=== PATIENT | female | born 1990 | race Caucasian/White ===

== ENCOUNTER 2019-09-15 19:02 | Emergency (ER) | payer MEDICARE, MEDICAID ==
[~2019-09-15] VITALS: Ht 165.1 cm; Wt 78.0 kg
[2019-09-15] MEDS ORDERED: NS IV 1000 ML 1,000 ML IV SCH (19:30)
--- NOTE | 2019-09-15 19:37 | ED General ---
General Chief Complaint: General Problems/Pain Stated Complaint: ALL OVER BODY PAIN,DIZZY,NAUSEA Nursing Triage Note: Patient states that she has a history of lupus and fibromyalgia. Patient states that she has been dizzy, nauseated and has had generalized pain. Patient took an oxycodone about 1 hour ago. She states that when she feels like this, her platelets are usually low. Patient states this began about an hour ago. Nursing Sepsis Screen: No Definite Risk History of Present Illness Date Seen by Provider: Sep 15, 2019 Time Seen by Provider: 19:30 Initial Comments Patient presents by private vehicle with complaint of feeling numbness and shaky all over her body just prior to arriving's evening. Patient lives in [facility], but was at her sister's house nearby when this happened. She states she also is having some pain in her left thigh from what she thought was a pulled muscle so she took her oxycodone and then took 3 -75 mg Lyrica tabs which she takes for her fibromyalgia. Patient concerned that her platelets may be low as she has a history of ITP Allergies and Home Medications Allergies Coded Allergies: No Known Drug Allergies (Unverified , 09/15/19) Patient Home Medication List Home Medication List Reviewed: Yes Review of Systems Review of Systems Constitutional: see HPI; No chills, No diaphoresis; dizziness; No fever; malaise; No weakness EENTM: no symptoms reported Respiratory: No cough, No short of breath Cardiovascular: No chest pain, No palpitations Gastrointestinal: No abdominal pain, No loss of appetite; nausea; No vomiting Musculoskeletal: No back pain; muscle pain; No muscle cramps, No muscle weakness, No neck pain Skin: No change in color, No rash Psychiatric/Neurological: Anxiety, Numbness Past Zteufyu-Lbeozz-Mjhjps Hx Past Med/Social Hx: Reviewed Nursing Past Med/Soc Hx Patient Social History Alcohol Use: Denies Use Recreational Drug Use: No Smoking Status: Current Everyday Smoker Type Used: Cigarettes Recent Foreign Travel: No Contact w/Someone Who Travel: No Recent Infectious Disease Expo: No Physical Abuse: No Sexual Abuse: No Mistreated: No Fear: No Past Medical History Surgeries: Yes Tubal Ligation Respiratory: No Cardiac: No Neurological: No Genitourinary: No Gastrointestinal: No Musculoskeletal: No Endocrine: Yes Lupus HEENT: No Cancer: No Psychosocial: Yes Anxiety Integumentary: No Blood Disorders: Yes (Immune Thrombocytopenia) Physical Exam Vital Signs Vital Signs - First Documented 09/15/19 19:08 Temp 36.4 Pulse 111 Resp 18 B/P (MAP) 140/95 (110) Pulse Ox 98 O2 Delivery Room Air Capillary Refill : Less Than 3 Seconds Height, Weight, BMI Height: '" Weight: lbs. oz. kg; 28.00 BMI Method: General Appearance: No Apparent Distress, WD/WN Respiratory: Chest Non Tender, Lungs Clear Cardiovascular: Regular Rate, Rhythm, No Edema Gastrointestinal: Non Tender, Soft; No Guarding Back: Normal Inspection, No CVA Tenderness; No Muscle Spasm Extremity: Normal Capillary Refill, Non Tender, No Calf Tenderness Neurologic/Psychiatric: Alert, Oriented x3, No Motor/Sensory Deficits, Normal Mood/Affect Progress/Results/Core Measures Suspected Sepsis Recent Fever Within 48 Hours: No Infection Criteria Present: None New/Unexplained Altered Menta: No Sepsis Screen: No Definite Risk SIRS Temperature: Pulse: 111 Respiratory Rate: 18 Laboratory Tests 09/15/19 19:11: White Blood Count 9.6 Blood Pressure 140 /95 Mean: 110 Laboratory Tests 09/15/19 19:11: Creatinine 0.72, Platelet Count 105L, Total Bilirubin 0.5 Results/Orders Lab Results Laboratory Tests Test 09/15/19 19:11 Range/Units White Blood Count 9.6 4.3-11.0 10^3/uL Red Blood Count 5.18 4.35-5.85 10^6/uL Hemoglobin 15.3 11.5-16.0 G/DL Hematocrit 46 35-52 % Mean Corpuscular Volume 88 80-99 FL Mean Corpuscular Hemoglobin 30 25-34 PG Mean Corpuscular Hemoglobin Concent 34 32-36 G/DL Red Cell Distribution Width 13.8 10.0-14.5 % Platelet Count 105 L 130-400 10^3/uL Mean Platelet Volume 10.6 H 7.4-10.4 FL Neutrophils (%) (Auto) 62 42-75 % Lymphocytes (%) (Auto) 30 12-44 % Monocytes (%) (Auto) 7 0-12 % Eosinophils (%) (Auto) 1 0-10 % Basophils (%) (Auto) 1 0-10 % Neutrophils # (Auto) 5.9 1.8-7.8 X 10^3 Lymphocytes # (Auto) 2.9 1.0-4.0 X 10^3 Monocytes # (Auto) 0.6 0.0-1.0 X 10^3 Eosinophils # (Auto) 0.1 0.0-0.3 10^3/uL Basophils # (Auto) 0.1 0.0-0.1 10^3/uL Sodium Level 137 135-145 MMOL/L Potassium Level 3.9 3.6-5.0 MMOL/L Chloride Level 99 98-107 MMOL/L Carbon Dioxide Level 22 21-32 MMOL/L Anion Gap 16 H 5-14 MMOL/L Blood Urea Nitrogen 6 L 7-18 MG/DL Creatinine 0.72 0.60-1.30 MG/DL Estimat Glomerular Filtration Rate > 60 BUN/Creatinine Ratio 8 Glucose Level 95 70-105 MG/DL Calcium Level 9.3 8.5-10.1 MG/DL Corrected Calcium 9.0 8.5-10.1 MG/DL Total Bilirubin 0.5 0.1-1.0 MG/DL Aspartate Amino Transf (AST/SGOT) 17 5-34 U/L Alanine Aminotransferase (ALT/SGPT) 16 0-55 U/L Alkaline Phosphatase 63 40-136 U/L Total Protein 8.3 H 6.4-8.2 GM/DL Albumin 4.4 3.2-4.5 GM/DL My Orders Orders - BRITT DARBY DO Cbc With Automated Diff (09/15/19 19:26) Comprehensive Metabolic Panel (09/15/19 19:26) Ed Iv/Invasive Line Start (09/15/19 19:26) Ns Iv 1000 Ml (Sodium Chloride 0.9%) (09/15/19 19:30) Vital Signs/I&O 09/15/19 19:08 Temp 36.4 Pulse 111 Resp 18 B/P (MAP) 140/95 (110) Pulse Ox 98 O2 Delivery Room Air Capillary Refill : Less Than 3 Seconds Blood Pressure Mean: 110 Progress Note : Progress Note Patient with chronic fibromyalgia and on chronic pain management. Had an episode of anxiety with all over body numbness that she supposed was due to her having low platelets as she has a history of ITP. States she also has a service dog that was not with her today that detects when her platelets are low. Reassurance given the patient that her labs are normal there is no need for further evaluation or treatment at this time in the emergency room physician may follow up with her primary care provider regarding her chronic condition Departure Impression Primary Impression: Fibromyalgia Disposition: 01 HOME, SELF-CARE Condition: Stable Departure-Patient Inst. Decision time for Depature: 19:37 Referrals: NO,LOCAL PHYSICIAN (PCP/Family) Primary Care Physician Patient Instructions: Fibromyalgia (DC) Add. Discharge Instructions: Call your doctor tomorrow to arrange for follow up care in the next 1-2 weeks. All discharge instructions reviewed with patient and/or family. Voiced understanding. BRITT DARBY DO Sep 15, 2019 19:37
[2019-09-15 19:38] LABS: HEMATOCRIT 46 % (35-52); HEMOGLOBIN 15.3 G/DL (11.5-16.0); MEAN CORPUSCULAR HEMOGLOBIN 30 PG (25-34); MEAN CORPUSCULAR HGB CONC 34 G/DL (32-36); MEAN CORPUSCULAR VOLUME 88 FL (80-99); MEAN PLATELET VOLUME 10.6 FL (7.4-10.4); PLATELET COUNT 105 10^3/uL (130-400); RED CELL DISTRIBUTION WIDTH 13.8 % (10.0-14.5); WHITE BLOOD COUNT 9.6 10^3/uL (4.3-11.0)
[2019-09-15 19:39] LABS: BASOPHILS # (AUTO) 0.1 10^3/uL (0.0-0.1); BASOPHILS % (AUTO) 1 % (0-10); EOSINOPHILS # (AUTO) 0.1 10^3/uL (0.0-0.3); EOSINOPHILS % (AUTO) 1 % (0-10); LYMPHOCYTES # (AUTO) 2.9 X 10^3 (1.0-4.0); LYMPHOCYTES % (AUTO) 30 % (12-44); MONOCYTES # (AUTO) 0.6 X 10^3 (0.0-1.0); MONOCYTES % (AUTO) 7 % (0-12); NEUTROPHILS # (AUTO) 5.9 X 10^3 (1.8-7.8); NEUTROPHILS % (AUTO) 62 % (42-75)
[2019-09-15 19:46] LABS: ALANINE AMINOTRANSFERASE 16 U/L (0-55); ALKALINE PHOSPHATASE 63 U/L (40-136); BILIRUBIN,TOTAL 0.5 MG/DL (0.1-1.0); BUN/CREATININE RATIO 8; CALCIUM 9.3 MG/DL (8.5-10.1); CARBON DIOXIDE 22 MMOL/L (21-32); CHLORIDE 99 MMOL/L (98-107); CREATININE SERUM 0.72 MG/DL (0.60-1.30); GFR ESTIMATED > 60; GLUCOSE 95 MG/DL (70-105); POTASSIUM 3.9 MMOL/L (3.6-5.0); SODIUM 137 MMOL/L (135-145); TOTAL PROTEIN 8.3 GM/DL (6.4-8.2)
[2019-09-15 19:47] LABS: ALBUMIN 4.4 GM/DL (3.2-4.5)
[2019-09-15 20:22] VITALS: BP 117/75
--- OUTSIDE RECORDS SUMMARY | 2019-09-15 22:06 | XMS REPORT | Clinical Summary ---
Author Author Carmen Partida Organization [facility] Address Unknown Phone Unavailable Allergies, Adverse Reactions, Alerts Allergy Name Reaction Description Start Date Severity Status Pr ovider No Known Allergies Renata Garcia Conditions or Problems Problem Name Problem Code Onset Date Status Entry Date Provider Comment Standard Description Annotate Endometriosis 617.9 Active Blaze Holley OFFICE COPY SELECTOR Endometriosis, site unspecified BMI 31-31.9 Active Blaze Holley OFFICE COPY SELECTOR Body Mass Index 31.0-31.9, adult Obesity Class I (BMI 30-34.9) Active 9 Blaze Holley OFFICE COPY SELECTOR Obesity, unspecified Skin infection 686.9 Active Blaze Holley OFFICE COPY SELECTOR Unspecified local infection of skin and subcutaneous tissue Medication List Medication Instructions Start Date Stop Date Generic Name NDC Status Provider Patient Instruction MUPIROCIN 2 % EXTERNAL OINTMENT apply to lesion/rash TID PRN 05/05 MUPIROCIN 17899802673 Active Blaze Holley OFFICE COPY SELECTOR Active BACTRIM DS 800-160 MG ORAL TABLET 1 tab by mouth twice daily 05/05 TRIMETHOPRIM-SULFAMETHOXAZOLE 28919530509 Active Blaze Holley OFFICE COPY SELECTOR Active IBUPROFEN 800 MG ORAL TABLET 1 po PRN IBUPROFEN 93849 246079 Active Blaze Holley OFFICE COPY SELECTOR Active TRAMADOL HCL 50 MG ORAL TABLET 2 pills BID TRAM ADOL HCL 97082820033 Active Blaze Holley OFFICE COPY SELECTOR Active Vital Signs Date Name Value Unit Range Description blood pressure, diastolic, repeated by physician 79 BP ronquillo blood pressure, diastolic 79 mm[Hg] BP ronquillo blood pressure, systolic, repeated by physician 114 BP sys blood pressure, systolic 114 mm[Hg] BP sys height E&M 65 [in_us] Bdy height pulse rate E&M 80 /min Heart rate temperature E&M 98.6 [degF] Body temp erature weight E&M 191 [lb_av] Weight Measure d Encounters Code Encounter Date Provider Facility CPT-31836 Level 3 Est. Patient 10:37:33 TECHNICAL RECRUITER Blaze donovan OFFICE COPY SELECTOR [facility]
--- OUTSIDE RECORDS SUMMARY | 2019-09-15 22:06 | XMS REPORT | Clinical Summary ---
Author Author Carmen Partida Organization [employer] [facility] Address Unknown Phone Unavailable Allergies, Adverse Reactions, Alerts Allergy Name Reaction Description Start Date Severity Status Pr ovider No Known Allergies Ana galindo LRT Conditions or Problems Problem Name Problem Code Onset Date Status Entry Date Provider Comment Standard Description Annotate Endometriosis 617.9 Active Blaze Holley PROJECT PRODUCT MANAGER Endometriosis, site unspecified BMI 31-31.9 Refinement Blaze Holley PROJECT PRODUCT MANAGER Body Mass Index 31.0-31.9, adult BMI 30-30.9 Active Blaze Holley PROJECT PRODUCT MANAGER Body Mass Index 31.0-31.9, adult Obesity Class I (BMI 30-34.9) Active 9 Blaze Holley PROJECT PRODUCT MANAGER Obesity, unspecified Skin infection 686.9 Active Blaze Holley PROJECT PRODUCT MANAGER Unspecified local infection of skin and subcutaneous tissue Pharyngitis, acute / sore throat 462 Active 202 Blaze Holley PROJECT PRODUCT MANAGER Acute pharyngitis Medication List Medication Instructions Start Date Stop Date Generic Name NDC Status Provider Patient Instruction AMOXICILLIN 500 MG ORAL CAPSULE 1 cap by mouth twice daily 05/19 AMOXICILLIN 14642523091 Active Blaze Holley PROJECT PRODUCT MANAGER Activ e MUPIROCIN 2 % EXTERNAL OINTMENT apply to lesion/rash TID PRN 05/05 MUPIROCIN 90522485266 Active Blaze Holley PROJECT PRODUCT MANAGER Active BACTRIM DS 800-160 MG ORAL TABLET 1 tab by mouth twice daily 05/05 TRIMETHOPRIM-SULFAMETHOXAZOLE 46582348003 Active Blaze Holley PROJECT PRODUCT MANAGER Active IBUPROFEN 800 MG ORAL TABLET 1 po PRN IBUPROFEN 58655 216300 Active Blaze Holley PROJECT PRODUCT MANAGER Active TRAMADOL HCL 50 MG ORAL TABLET 2 pills BID TRAM ADOL HCL 99004943817 Active Blaze Fatimazion TAN Active Vital Signs Date Name Value Unit Range Description blood pressure, diastolic, repeated by physician 86 BP ronquillo blood pressure, diastolic 86 mm[Hg] BP ronquillo blood pressure, systolic, repeated by physician 122 BP sys blood pressure, systolic 122 mm[Hg] BP sys pulse rate E&M 84 /min Heart rate temperature E&M 98.5 [degF] Body temp erature weight E&M 181.90 [lb_av] Weight Measure d blood pressure, diastolic, repeated by physician 79 BP ronquillo blood pressure, diastolic 79 mm[Hg] BP ronquillo blood pressure, systolic, repeated by physician 114 BP sys blood pressure, systolic 114 mm[Hg] BP sys height E&M 65 [in_us] Bdy height pulse rate E&M 80 /min Heart rate temperature E&M 98.6 [degF] Body temp erature weight E&M 191 [lb_av] Weight Measure d Diagnostic Results Date Name Value Unit Range Description Append: Rapid result - Lab Microbial identification kit, rapid strep method Positive Encounters Code Encounter Date Provider Facility CPT-13379 Level 3 Est. Patient 10:16:59 BIOLOGICAL SCIENCES PROFESSOR Blaze donovan [facility] CPT-44978 Level 3 Est. Patient 10:37:33 BIOLOGICAL SCIENCES PROFESSOR Blaze donovan [facility] Procedures Code Procedure Name Date Entry Date Standard Desc ription CPT-11729 Rapid Strep - FLOOR USE ONLY 10:16:59 BIOLOGICAL SCIENCES PROFESSOR 2
--- OUTSIDE RECORDS SUMMARY | 2019-09-15 22:06 | XMS REPORT | Clinical Summary ---
Author Author Helga, Carmen Banks Organization [facility] Address Unknown Phone Unavailable Allergies, Adverse Reactions, Alerts Allergy Name Reaction Description Start Date Severity Status Pr ovider No Known Allergies Renata Garcia Conditions or Problems Problem Name Problem Code Onset Date Status Entry Date Provider Comment Standard Description Annotate Endometriosis 617.9 Active Blaze Holley MANAGER WEB APPLICATION Endometriosis, site unspecified BMI 31-31.9 Active Blaze Holley MANAGER WEB APPLICATION Body Mass Index 31.0-31.9, adult Obesity Class I (BMI 30-34.9) Active 9 Blaze Holley MANAGER WEB APPLICATION Obesity, unspecified Skin infection 686.9 Active Blaze Holley MANAGER WEB APPLICATION Unspecified local infection of skin and subcutaneous tissue Medication List Medication Instructions Start Date Stop Date Generic Name NDC Status Provider Patient Instruction MUPIROCIN 2 % EXTERNAL OINTMENT apply to lesion/rash TID PRN 05/05 MUPIROCIN 04038483799 Active Blaze Holley MANAGER WEB APPLICATION Active BACTRIM DS 800-160 MG ORAL TABLET 1 tab by mouth twice daily 05/05 TRIMETHOPRIM-SULFAMETHOXAZOLE 38203000148 Active Blaze Holley MANAGER WEB APPLICATION Active IBUPROFEN 800 MG ORAL TABLET 1 po PRN IBUPROFEN 07625 614892 Active Blaze Holley MANAGER WEB APPLICATION Active TRAMADOL HCL 50 MG ORAL TABLET 2 pills BID TRAM ADOL HCL 53997323023 Active Blaze Holley MANAGER WEB APPLICATION Active Vital Signs Date Name Value Unit [...] d Encounters Code Encounter Date Provider Facility CPT-02064 Level 3 Est. Patient 10:37:33 SMOKE JUMPER Blaze donovan [facility]
--- OUTSIDE RECORDS SUMMARY | 2019-09-15 22:06 | XMS REPORT ---
Author Author Carmen Garcia Organization [facility] Address [address] [place] [address] Care Team Providers Care Life Insurance Agent Name Role Phone Juanita Garcia Unavailable PROBLEMS Type Condition ICD9-CM Code [id number] Code Onset Dates Condition S tatus SNOMED Code Problem Fibromyalgia M79.7 Active 1803577 05 Problem Type 2 diabetes mellitus wit hout complication, without long-term current use of insulin E11.9 Active 306633137 Problem Rheumatoid arthritis involvi ng multiple sites, unspecified rheumatoid factor presence M06.9 Active 410717721 Problem Mild episode of recurrent major depressive disorder F33.0 Active 949288037 Problem Thrombocytopenia D69.6 Active [id number] ALLERGIES No Information ENCOUNTERS Encounter Location Date Diagnosis [facility] [address] [facility] [address] [place], [place] [id number] Feb, [facility] [address] [facility] [address] [place] [id number] Oct, [facility] [address] [facility] [address] [place], [place] [phone] Sep, [facility] [address] [place] [address] [address] [place], [place] [id number] Sep, [address] [id number] Sep, Thrombocytopenia D69.6 ; Glucosuria R81 and Type 2 diabetes mellitus without complication, without long-term current use of insulin E11.[address] [place], [place] [id number] Aug, Sunburn of second degree L55.1 and Cellu litis of right lower extremity L03.115 [address] [place], [place] [phone] Jun, Well woman exam Z01.419 [facility] [address] [address] [place], [place] [id number] Jun, [address] [address] [place] [id number] May, [facility] [address], [place] [phone] May, Lupus erythematosus, unspecified form L9 3.0 ; Thrombocytopenia D69.6 ; Rheumatoid arthritis involving multiple sites, unspecified rheumatoid factor presence M06.9 ; Acute non-recurrent pansinusitis J01.40 and Mild episode of recurrent major depressive disorder F33.0 IMMUNIZATIONS No Known Immunizations SOCIAL HISTORY Never Assessed REASON FOR VISIT Medical records request PLAN OF CARE VITAL SIGNS MEDICATIONS Unknown Medications RESULTS No Results PROCEDURES No Known procedures INSTRUCTIONS MEDICATIONS ADMINISTERED No Known Medications MEDICAL (GENERAL) HISTORY Type Description Date Medical History fibromyalgia Medical History RA Medical History lupus Medical History depression Medical History immunothrombocytopenia Medical History Thrombocytopenia Medical History Rheumatoid arthritis involvi ng multiple sites, unspecified rheumatoid factor presence Medical History Mild episode of recurrent major depressi ve disorder Medical History Fibromyalgia Surgical History tubal ligation Hospitalization History child x 3
--- OUTSIDE RECORDS SUMMARY | 2019-09-15 22:06 | XMS REPORT | Clinical Summary ---
Author Author Carmen Partida Organization [facility] Address Unknown Phone Unavailable Allergies, Adverse Reactions, Alerts Allergy Name Reaction Description Start Date Severity Status Pr ovider No Known Allergies Ana galindo LRT Conditions or Problems Problem Name Problem Code Onset Date Status Entry Date Provider Comment Standard Description Annotate Endometriosis 617.9 Active Blaze Holley SERVICE DESK SPECIALIST Endometriosis, site unspecified BMI 31-31.9 Refinement Blaze Holley SERVICE DESK SPECIALIST Body Mass Index 31.0-31.9, adult BMI 30-30.9 Active Blaze Holley SERVICE DESK SPECIALIST Body Mass Index 31.0-31.9, adult Obesity Class I (BMI 30-34.9) Active 9 Blaze Holley SERVICE DESK SPECIALIST Obesity, unspecified Skin infection 686.9 Active Blaze Holley SERVICE DESK SPECIALIST Unspecified local infection of skin and subcutaneous tissue Pharyngitis, acute / sore throat 462 Active 202 Blaze Holley SERVICE DESK SPECIALIST Acute pharyngitis Medication List Medication Instructions Start Date Stop Date Generic Name NDC Status Provider Patient Instruction AMOXICILLIN 500 MG ORAL CAPSULE 1 cap by mouth twice daily 05/19 AMOXICILLIN 25810277812 Active Blaze Holley SERVICE DESK SPECIALIST Activ e MUPIROCIN 2 % EXTERNAL OINTMENT apply to lesion/rash TID PRN 05/05 MUPIROCIN 34936054980 Active Blaze Holley SERVICE DESK SPECIALIST Active BACTRIM DS 800-160 MG ORAL TABLET 1 tab by mouth twice daily 05/05 TRIMETHOPRIM-SULFAMETHOXAZOLE 56343398267 Active Blaze Holley SERVICE DESK SPECIALIST Active IBUPROFEN 800 MG ORAL TABLET 1 po PRN IBUPROFEN 71257 020997 Active Blaze Holley SERVICE DESK SPECIALIST Active TRAMADOL HCL 50 MG ORAL TABLET 2 pills BID TRAM ADOL HCL 06293389501 Active Blaze Babb BRITNEY Active Vital Signs Date Name Value Unit [...] Positive Encounters Code Encounter Date Provider Facility CPT-54456 Level 3 Est. Patient 10:16:59 RECHARGER Blaze donovan [facility] CPT-78156 Level 3 Est. Patient 10:37:33 RECHARGER Blaze donovan [facility] Procedures Code Procedure Name Date Entry Date Standard Desc ription CPT-56723 Rapid Strep - FLOOR USE ONLY 10:16:59 RECHARGER 2
--- OUTSIDE RECORDS SUMMARY | 2019-09-15 22:06 | XMS REPORT | Clinical Summary ---
Author Author Carmen Partida Organization [facility] Address Unknown Phone Unavailable Allergies, Adverse Reactions, Alerts Allergy Name Reaction Description Start Date Severity Status Pr ovider No Known Allergies Ana galindo LRT Conditions or Problems Problem Name Problem Code Onset Date Status Entry Date Provider Comment Standard Description Annotate Endometriosis 617.9 Active Blaze Holley PIANO MOVER Endometriosis, site unspecified BMI 31-31.9 Refinement Blaze Holley PIANO MOVER Body Mass Index 31.0-31.9, adult BMI 30-30.9 Active Blaze Holley PIANO MOVER Body Mass Index 31.0-31.9, adult Obesity Class I (BMI 30-34.9) Active 9 Blaze Holley PIANO MOVER Obesity, unspecified Skin infection 686.9 Active Blaze Holley PIANO MOVER Unspecified local infection of skin and subcutaneous tissue Pharyngitis, acute / sore throat 462 Active 202 Blaze Holley PIANO MOVER Acute pharyngitis Medication List Medication Instructions Start Date Stop Date Generic Name NDC Status Provider Patient Instruction AMOXICILLIN 500 MG ORAL CAPSULE 1 cap by mouth twice daily 05/19 AMOXICILLIN 32381663881 Active Blaze Holley PIANO MOVER Activ e MUPIROCIN 2 % EXTERNAL OINTMENT apply to lesion/rash TID PRN 05/05 MUPIROCIN 23117542309 Active Blaze Holley PIANO MOVER Active BACTRIM DS 800-160 MG ORAL TABLET 1 tab by mouth twice daily 05/05 TRIMETHOPRIM-SULFAMETHOXAZOLE 32683827635 Active Blaze Holley PIANO MOVER Active IBUPROFEN 800 MG ORAL TABLET 1 po PRN IBUPROFEN 08657 007576 Active Blaze Holley PIANO MOVER Active TRAMADOL HCL 50 MG ORAL TABLET 2 pills BID TRAM ADOL HCL 48796703066 Active Blaze Babb BRITNEY Active Vital Signs [...] Positive Encounters Code Encounter Date Provider Facility CPT-72880 Level 3 Est. Patient 10:16:59 EQUIPMENT MECHANIC Blaze donovan [facility] CPT-39427 Level 3 Est. Patient 10:37:33 EQUIPMENT MECHANIC Blaze donovan [facility] Procedures Code Procedure Name Date Entry Date Standard Desc ription CPT-27633 Rapid Strep - FLOOR USE ONLY 10:16:59 EQUIPMENT MECHANIC 2
--- OUTSIDE RECORDS SUMMARY | 2019-09-15 22:06 | XMS REPORT | Clinical Summary ---
Author Author Carmen Partida Organization [employer] [facility] Address Unknown Phone Unavailable Allergies, Adverse Reactions, Alerts Allergy Name Reaction Description Start Date Severity Status Pr ovider No Known Allergies Ana galindo LRT Conditions or Problems Problem Name Problem Code Onset Date Status Entry Date Provider Comment Standard Description Annotate Endometriosis 617.9 Active Blaze Holley INDUSTRIAL RELATIONS WORKER Endometriosis, site unspecified BMI 31-31.9 Refinement Blaze Holley INDUSTRIAL RELATIONS WORKER Body Mass Index 31.0-31.9, adult BMI 30-30.9 Active Blaze Holley INDUSTRIAL RELATIONS WORKER Body Mass Index 31.0-31.9, adult Obesity Class I (BMI 30-34.9) Active 9 Blaez Holley INDUSTRIAL RELATIONS WORKER Obesity, unspecified Skin infection 686.9 Active Blaze Holley INDUSTRIAL RELATIONS WORKER Unspecified local infection of skin and subcutaneous tissue Pharyngitis, acute / sore throat 462 Active 202 Blaze Holley INDUSTRIAL RELATIONS WORKER Acute pharyngitis Medication List Medication Instructions Start Date Stop Date Generic Name NDC Status Provider Patient Instruction AMOXICILLIN 500 MG ORAL CAPSULE 1 cap by mouth twice daily 05/19 AMOXICILLIN 06356958688 Active Blaze Holley INDUSTRIAL RELATIONS WORKER Activ e MUPIROCIN 2 % EXTERNAL OINTMENT apply to lesion/rash TID PRN 05/05 MUPIROCIN 43606595886 Active Blaze Holley INDUSTRIAL RELATIONS WORKER Active BACTRIM DS 800-160 MG ORAL TABLET 1 tab by mouth twice daily 05/05 TRIMETHOPRIM-SULFAMETHOXAZOLE 37250504355 Active Blaze Holley INDUSTRIAL RELATIONS WORKER Active IBUPROFEN 800 MG ORAL TABLET 1 po PRN IBUPROFEN 76487 451700 Active Blaze Holley INDUSTRIAL RELATIONS WORKER Active TRAMADOL HCL 50 MG ORAL TABLET 2 pills BID TRAM ADOL HCL 33681181984 Active Blaze Fatimazion TAN Active Vital Signs [...] Positive Encounters Code Encounter Date Provider Facility CPT-22204 Level 3 Est. Patient 10:16:59 JAVASCRIPT APPLICATION DEVELOPER Blaze odnovan [facility] CPT-99241 Level 3 Est. Patient 10:37:33 JAVASCRIPT APPLICATION DEVELOPER Blaze donovan [facility] Procedures Code Procedure Name Date Entry Date Standard Desc ription CPT-50110 Rapid Strep - FLOOR USE ONLY 10:16:59 JAVASCRIPT APPLICATION DEVELOPER 2
--- OUTSIDE RECORDS SUMMARY | 2019-09-15 22:06 | XMS REPORT | Clinical Summary ---
Author Author Carmen Partida Organization [facility] Address Unknown Phone Unavailable Allergies, Adverse Reactions, Alerts Allergy Name Reaction Description Start Date Severity Status Pr ovider No Known Allergies Ana galindo LRT Conditions or Problems Problem Name Problem Code Onset Date Status Entry Date Provider Comment Standard Description Annotate Endometriosis 617.9 Active Blaze Holley VOICE INTERCEPT TECHNICIAN Endometriosis, site unspecified BMI 31-31.9 Refinement Blaze Holley VOICE INTERCEPT TECHNICIAN Body Mass Index 31.0-31.9, adult BMI 30-30.9 Active Blaze Holley VOICE INTERCEPT TECHNICIAN Body Mass Index 31.0-31.9, adult Obesity Class I (BMI 30-34.9) Active 9 Blaze Holley VOICE INTERCEPT TECHNICIAN Obesity, unspecified Skin infection 686.9 Active Blaze Holley VOICE INTERCEPT TECHNICIAN Unspecified local infection of skin and subcutaneous tissue Pharyngitis, acute / sore throat 462 Active 202 Blaze Holley VOICE INTERCEPT TECHNICIAN Acute pharyngitis Medication List Medication Instructions Start Date Stop Date Generic Name NDC Status Provider Patient Instruction AMOXICILLIN 500 MG ORAL CAPSULE 1 cap by mouth twice daily 05/19 AMOXICILLIN 44700600220 Active Blaze Holley VOICE INTERCEPT TECHNICIAN Activ e MUPIROCIN 2 % EXTERNAL OINTMENT apply to lesion/rash TID PRN 05/05 MUPIROCIN 64300059441 Active Blaze Holley VOICE INTERCEPT TECHNICIAN Active BACTRIM DS 800-160 MG ORAL TABLET 1 tab by mouth twice daily 05/05 TRIMETHOPRIM-SULFAMETHOXAZOLE 37535914090 Active Blaze Holley VOICE INTERCEPT TECHNICIAN Active IBUPROFEN 800 MG ORAL TABLET 1 po PRN IBUPROFEN 13693 582179 Active Blaze Holley VOICE INTERCEPT TECHNICIAN Active TRAMADOL HCL 50 MG ORAL TABLET 2 pills BID TRAM ADOL HCL 94813940536 Active Blaze Babb BRITNEY Active Vital Signs [...] Positive Encounters Code Encounter Date Provider Facility CPT-05035 Level 3 Est. 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
--- OUTSIDE RECORDS SUMMARY | 2019-09-15 22:06 | XMS REPORT | Clinical Summary ---
Author Author Helga, Carmen Banks Organization [facility] Address Unknown Phone Unavailable Allergies, Adverse Reactions, Alerts Allergy Name Reaction Description Start Date Severity Status Pr ovider No Known Allergies Renata Garcia Conditions or Problems Problem Name Problem Code Onset Date Status Entry Date Provider Comment Standard Description Annotate Endometriosis 617.9 Active Blaze Holley IT SYSTEMS ENGINEER Endometriosis, site unspecified BMI 31-31.9 Active Blaze Holley IT SYSTEMS ENGINEER Body Mass Index 31.0-31.9, adult Obesity Class I (BMI 30-34.9) Active 9 Blaze Holley IT SYSTEMS ENGINEER Obesity, unspecified Skin infection 686.9 Active Blaze Holley IT SYSTEMS ENGINEER Unspecified local infection of skin and subcutaneous tissue Medication List Medication Instructions Start Date Stop Date Generic Name NDC Status Provider Patient Instruction MUPIROCIN 2 % EXTERNAL OINTMENT apply to lesion/rash TID PRN 05/05 MUPIROCIN 28714341060 Active Blaze Holley IT SYSTEMS ENGINEER Active BACTRIM DS 800-160 MG ORAL TABLET 1 tab by mouth twice daily 05/05 TRIMETHOPRIM-SULFAMETHOXAZOLE 76298560063 Active Blaze Holley IT SYSTEMS ENGINEER Active IBUPROFEN 800 MG ORAL TABLET 1 po PRN IBUPROFEN 96303 154935 Active Blaze Holley IT SYSTEMS ENGINEER Active TRAMADOL HCL 50 MG ORAL TABLET 2 pills BID TRAM ADOL HCL 56512627701 Active Blaze Holley IT SYSTEMS ENGINEER Active Vital Signs Date Name Value Unit [...] d Encounters Code Encounter Date Provider Facility CPT-14582 Level 3 Est. 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
--- OUTSIDE RECORDS SUMMARY | 2019-09-15 22:06 | XMS REPORT ---
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 Active 754349423 Problem Thrombocytopenia D69.6 Active 415 [id number] ALLERGIES No Information ENCOUNTERS Encounter Location Date Diagnosis [facility] [address] [place], [place] [phone] Mar, [facility] [address] [place] [id number] Feb, [facility] [address] [place], [place] [phone] Oct[place] [facility] [address] [place], [place] [phone] Sep, [facility] [address] [facility] [address] [place], [place] [phone] Sep, [facility] [address] [place], [place] [phone] Sep, Thrombocytopenia D69.6 ; Glucosuria R81 and Type 2 diabetes mellitus without complication, without long-term current use of insulin E11.9 [facility] [address] [place] [phone] Aug, Sunburn of second degree L55.1 and Cellu litis of right lower extremity L03.115 [facility] [address] [place], [place] [phone] Jun, Well woman exam Z01.419 [facility] [address] [facility] [address] [place], [place] [phone] Jun, [facility] [address] [address] [place] [phone] May, [facility] [address] [place], [place] [phone] May, Lupus erythematosus, unspecified form L9 3.0 [...]
--- OUTSIDE RECORDS SUMMARY | 2019-09-15 22:06 | XMS REPORT | Clinical Summary ---
Author Author Carmen Partida Organization [facility] Address Unknown Phone Unavailable Allergies, Adverse Reactions, Alerts Allergy Name Reaction Description Start Date Severity Status Pr ovider No Known Allergies Ana galindo LRT Conditions or Problems Problem Name Problem Code Onset Date Status Entry Date Provider Comment Standard Description Annotate Endometriosis 617.9 Active Blaze Holley AUDIT SPECIALIST Endometriosis, site unspecified BMI 31-31.9 Refinement Blaze Holley AUDIT SPECIALIST Body Mass Index 31.0-31.9, adult BMI 30-30.9 Active Blaze Holley AUDIT SPECIALIST Body Mass Index 31.0-31.9, adult Obesity Class I (BMI 30-34.9) Active 9 Blaze Holley AUDIT SPECIALIST Obesity, unspecified Skin infection 686.9 Active Blaze Holley AUDIT SPECIALIST Unspecified local infection of skin and subcutaneous tissue Pharyngitis, acute / sore throat 462 Active 202 Blaze Holley AUDIT SPECIALIST Acute pharyngitis Medication List Medication Instructions Start Date Stop Date Generic Name NDC Status Provider Patient Instruction AMOXICILLIN 500 MG ORAL CAPSULE 1 cap by mouth twice daily 05/19 AMOXICILLIN 09312837637 Active Blaze Holley AUDIT SPECIALIST Activ e MUPIROCIN 2 % EXTERNAL OINTMENT apply to lesion/rash TID PRN 05/05 MUPIROCIN 15097786347 Active Blaze Holley AUDIT SPECIALIST Active BACTRIM DS 800-160 MG ORAL TABLET 1 tab by mouth twice daily 05/05 TRIMETHOPRIM-SULFAMETHOXAZOLE 72363121052 Active Blaze Holley AUDIT SPECIALIST Active IBUPROFEN 800 MG ORAL TABLET 1 po PRN IBUPROFEN 40595 979521 Active Blaze Holley AUDIT SPECIALIST Active TRAMADOL HCL 50 MG ORAL TABLET 2 pills BID TRAM ADOL HCL 44030370238 Active Blaze Babb BRITNEY Active Vital Signs [...] Positive Encounters Code Encounter Date Provider Facility CPT-45395 Level 3 Est. 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 Patient 10:37:33 FIRE PROTECTION INSPECTOR Blaze donovan [facility] Procedures Code Procedure Name Date Entry Date Standard Desc ription CPT-96437 Rapid Strep - FLOOR USE ONLY 10:16:59 FIRE PROTECTION INSPECTOR 2
--- OUTSIDE RECORDS SUMMARY | 2019-09-15 22:07 | XMS REPORT | Clinical Summary ---
Author Author Carmen Partida Organization [facility] Address Unknown Phone Unavailable Allergies, Adverse Reactions, Alerts Allergy Name Reaction Description Start Date Severity Status Pr ovider No Known Allergies Renata Garcia Conditions or Problems Problem Name Problem Code Onset Date Status Entry Date Provider Comment Standard Description Annotate Endometriosis 617.9 Active Blaze Ohlley SENIOR SUPPORT ENGINEER Endometriosis, site unspecified BMI 31-31.9 Active Blaze Holley SENIOR SUPPORT ENGINEER Body Mass Index 31.0-31.9, adult Obesity Class I (BMI 30-34.9) Active 9 Blaze Holley SENIOR SUPPORT ENGINEER Obesity, unspecified Skin infection 686.9 Active Blaze Holley SENIOR SUPPORT ENGINEER Unspecified local infection of skin and subcutaneous tissue Medication List Medication Instructions Start Date Stop Date Generic Name NDC Status Provider Patient Instruction MUPIROCIN 2 % EXTERNAL OINTMENT apply to lesion/rash TID PRN 05/05 MUPIROCIN 49109942485 Active Blaze Holley SENIOR SUPPORT ENGINEER Active BACTRIM DS 800-160 MG ORAL TABLET 1 tab by mouth twice daily 05/05 TRIMETHOPRIM-SULFAMETHOXAZOLE 28426840844 Active Blaze Holley SENIOR SUPPORT ENGINEER Active IBUPROFEN 800 MG ORAL TABLET 1 po PRN IBUPROFEN 52563 337691 Active Blaze Holley SENIOR SUPPORT ENGINEER Active TRAMADOL HCL 50 MG ORAL TABLET 2 pills BID TRAM ADOL HCL 27662165809 Active Blaze Holley SENIOR SUPPORT ENGINEER Active Vital Signs Date Name Value [...] d Encounters Code Encounter Date Provider Facility CPT-86580 Level 3 Est. 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
--- OUTSIDE RECORDS SUMMARY | 2019-09-15 22:07 | XMS REPORT | Continuity of Care Document ---
Author Organization Unknown Address Unknown Phone Unavailable Allergies Active Description Code Type Severity Reaction Onset Reported/Identified Relationship to Patient Clinical Status Yes NKA Drug N/A N/A Yes NKA Drug N/A N/A Yes No known allergies Drug N/A N/A Yes NO NAME AVAILABLE [id number] DRUG N/A N/A Yes No Known Allergies NKA MED N/A N/A 11/11/2017 Yes No Known Drug Allergies [id number] Drug Allergy Unknown N/A 09/15/2019 Medications Medication Packaging Start Date St op Date Route Dosage Sig naproxen 015 08/01/2015 PO 500 mg / 1 tab DULoxetine 01/2708/01/2015 PO 30 mg / 1 cap hydroxychloroquine 01/27/2015 08/05/2016 PO 400 mg / 2 tab methocarbamol 06/12/2018 PO methocarbamol tiZANidine 01/2708/01/2015 PO 2 mg / 1 cap meloxicam 201408/05/2016 PO 15 mg / 1 tab ferrous sulfate 08/01/2015 05/03/2019 PO 324 mg / 1 tab tiZANidine 07/3110/03/2017 PO 4 mg / 2 tab FLUoxetine 07/3110/28/2016 PO FLUoxetine montelukast 03/17 PO 10 mg / 1 tab pregabalin 03/2901/28/2017 PO 150 mg / 3 cap naproxen 017 PO 500 mg / 1 tab dexamethasone 09/02/2016 dexamethasone 4 mg oral tablet orphenadrine 01/28/2017 PO 100 mg / 1 tab DULoxetine 10/2805/03/2019 PO 60 mg / 1 cap pregabalin 01/2805/03/2019 PO 225 mg / 1 cap azaTHIOprine 10/03/2017 PO 50 mg / 1 tab SUMAtriptan 07/1507/26/2017 Imitrex 100 mg oral tablet dexamethasone 10/03/2017 dexamethasone 4 mg oral tablet azaTHIOprine 05/03/2019 PO azaTHIOprine tiZANidine 10/0305/03/2019 PO 8 mg / 2 tab SUMAtriptan 09/15 PO 100 mg / 1 tab triamcinolone topical 10/03/2017 TOP triamcinolone 0.1% topical cream predniSONE 10/0410/18/2017 PO 90 mg / 4.5 tab predniSONE 10/2012/17/2017 predniSONE 20 mg oral tablet ARIPiprazole 5 MG Oral Tablet 11/11/2017 12/12/2017 ORAL 5MG predniSONE 11/1312/17/2017 predniSONE 2.5 mg oral tablet ARIPiprazole 02/201805/03/2019 PO 5 mg / 1 tab ARIPiprazole 5 MG Oral Tablet 12/09/2017 12/17/2017 ORAL 5MG ARIPiprazole 5 MG Oral Tablet 12/16/2017 02/15/2018 ORAL 5MG traMADol 018 PO Ultram varenicline 03/1706/12/2018 PO Chantix doxycycline 06/1507/10/2018 PO 100 mg / 1 cap Abilify 10 MG Oral Tablet 07/21/2018 10/20/2018 ORAL 10MG ARIPiprazole 5 MG Oral Tablet 07/21/2018 10/20/2018 ORAL 5MG DULoxetine HCl 60 MG Oral Ca psule Delayed Release Particles 07/21/2018 10/20/2018 ORAL 60MG busPIRone HCl 10 MG Oral Tablet 07/21/2018 10/20/2018 ORAL 10MG ibuprofen 201807/28/2018 PO 800 mg / 1 tab busPIRone 201805/03/2019 PO 10 mg / 1 tab omeprazole 09/2105/06/2019 PO 20 mg / 1 cap Abilify 10 MG Oral Tablet 11/10/2018 02/09/2019 ORAL 10MG DULoxetine HCl 60 MG Oral Ca psule Delayed Release Particles 11/10/2018 02/09/2019 ORAL 60MG busPIRone HCl 10 MG Oral Tablet 11/10/2018 02/09/2019 ORAL 10MG ondansetron 11/15 SL 4 mg / 1 tab ondansetron 04/17 PO 4 mg / 1 tab omeprazole 05/06 PO 40 mg / 1 cap Problems Date Dx Coded Attending Type Code Diagnosis Diagnosed By 07/13/2014 Emilia Espinoza Final 710.0 Systemic Lupus Erythematosus 08/03/2014 David You Final 287.5 Thrombocytopenia, Unspecified 02/02/2015 David You Final D69.6 Thrombocytopenia, unspecified 02/02/2015 David You Final L93.0 Discoid lupus erythematosus 08/15/2015 David You Final D69.6 Thrombocytopenia, unspecified 04/28/2016 David You Final D69.6 Thrombocytopenia, unspecified 05/29/2016 Emilia Espinoza Final M32.9 Systemic lupus erythematosus, unspecified 05/29/2016 Emilia Espinoza Final R53.83 Other fatigue 09/04/2016 David You Final D69.6 Thrombocytopenia, unspecified 09/04/2016 David You Final M32.9 Systemic lupus erythematosus, unspecified 11/27/2016 David You Final D69.3 Immune thrombocytopenic purpura 11/27/2016 David You Final M32.9 Systemic lupus erythematosus, unspecified 02/05/2017 David You Final D69.3 Immune thrombocytopenic purpura 02/05/2017 David You Final M32.9 Systemic lupus erythematosus, unspecified 02/16/2017 HEMA DICK P R 300 Dysuria 05/01/2017 David You Final D69.3 Immune thrombocytopenic purpura 05/01/2017 David You Final M32.9 Systemic lupus erythematosus, unspecified 08/26/2017 David You Final D69.3 Immune thrombocytopenic purpura 08/26/2017 David You Final M32.9 Systemic lupus erythematosus, unspecified 08/26/2017 David You Final R23.3 Spontaneous ecchymoses 10/04/2017 Harpreet Tubbs I Final D69 .3 Immune thrombocytopenic purpura 10/04/2017 Harpreet Tubbs I Final E66 .9 Obesity, unspecified 10/04/2017 Harpreet Tubbs I Final F17.210 Nicotine dependence, cigarettes, uncomplicated 10/04/2017 Harpreet Tubbs I Final G43.909 Migraine, unspecified, not intractable, without status migra 10/04/2017 Harpreet Tubbs I Final G62 .9 Polyneuropathy, unspecified 10/04/2017 Harpreet Tubbs I Final L93 .2 Other local lupus erythematosus 10/04/2017 Harpreet Tubbs I Final M06 .9 Rheumatoid arthritis, unspecified 10/04/2017 Harpreet Tubbs I Final M79 .7 Fibromyalgia 10/04/2017 Harpreet Tubbs I Final N92 .0 Excessive and frequent menstruation with regular cycle 10/04/2017 Harpreet Tubbs I Final Z68.33 Body mass index (BMI) 33.0-33.9, adult 11/04/2017 F F33.1 Caroline r depressive disorder, recurrent, moderate Miriam, Di 11/04/2017 Annmarie Valdivia W F33.1 Major depressive disorder, recurrent, moderate 11/04/2017 Annmarie Valdivia W F41.1 Generalized anxiety disorder 11/09/2017 David You Final D69.3 Immune thrombocytopenic purpura 11/09/2017 David You Final M32.9 Systemic lupus erythematosus, unspecified 11/09/2017 David You Final 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 12/10/2017 David You Final D69.3 Immune thrombocytopenic purpura 12/10/2017 David You Final M32.9 Systemic lupus erythematosus, unspecified 12/10/2017 David You Final Z71.89 Other specified counseling 12/10/2017 David You Final 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 01/10/2018 David You Final D69.3 Immune thrombocytopenic purpura 01/10/2018 David You Final M32.9 Systemic lupus erythematosus, unspecified 01/29/2018 David You Final D69.3 Immune thrombocytopenic purpura 01/29/2018 David You Final M32.9 Systemic lupus erythematosus, unspecified 01/29/2018 David You Final Z71.89 Other specified counseling 03/25/2018 David You Final D69.3 Immune thrombocytopenic purpura 04/24/2018 David You Final D69.3 Immune thrombocytopenic purpura 05/30/2018 David You Final D69.3 Immune thrombocytopenic purpura 05/30/2018 David You Final M32.9 Systemic lupus erythematosus, unspecified 05/30/2018 David You Final R23.2 Flushing 06/10/2018 David You Final D69.3 Immune thrombocytopenic purpura 06/18/2018 Igor Harris Final N93 .9 Abnormal uterine and vaginal bleeding, unspecified 07/24/2018 Igor Harris Final D69 .3 Immune thrombocytopenic purpura 07/24/2018 Igor Harris Final F17.210 Nicotine dependence, cigarettes, uncomplicated 07/24/2018 Igor Harris Final L93 .2 Other local lupus erythematosus 07/24/2018 Igor Harris Final N92 .0 Excessive and frequent menstruation with regular cycle 07/24/2018 Igor Harris Final N92 .6 Irregular menstruation, unspecified 07/24/2018 Igor Harris Final N93 .9 Abnormal uterine and vaginal bleeding, unspecified 07/24/2018 Igor Harris Final Z98.51 Tubal ligation status 07/29/2018 David You Final D69.6 Thrombocytopenia, unspecified 09/24/2018 Luis Quiles Final G89.2 9 Other chronic pain 09/24/2018 Luis Quiles Final R10.3 2 Left lower quadrant pain 11/09/2018 Luis Quiles Final Z53.9 Procedure and treatment not carried out, unspecified reason 11/21/2018 David You Final D69.3 Immune thrombocytopenic purpura 12/02/2018 F F41.1 Gene ralized anxiety disorder Di Pineda 12/04/2018 Igor Harris Final R10.32 Left lower quadrant pain 12/22/2018 David You Final D69.3 Immune thrombocytopenic purpura 12/24/2018 Priya Castellanos Reason For Visit D69.59 Other secondary thrombocytopenia 12/24/2018 Priya Castellanos Final J06. 9 Acute upper respiratory infection, unspecified 12/24/2018 Priya Castellanos Final M32. 9 Systemic lupus erythematosus, unspecified 01/30/2019 GUILLERMO MEANS Final N 83.201 Unspecified ovarian cyst, right side 01/30/2019 GUILLERMO MEANS Reason For Visit R10.31 Right lower quadrant pain 03/04/2019 L08.9 Skin infection 03/04/2019 E66.9 Obes ity Class I (BMI 30-34.9) 03/04/2019 N80.9 Endo metriosis 03/04/2019 Z68.31 BMI 31-31.9 03/06/2019 Laura Rhoades Final N83.201 Unspecified ovarian cyst, right side 03/06/2019 Laura Rhoades Reason For Visi t R10.31 Right lower quadrant pain 05/03/2019 Luis Quiles Final F17.2 10 Nicotine dependence, cigarettes, uncomplicated 05/03/2019 Luis Quiles Final K29.8 0 Duodenitis without bleeding 05/03/2019 Luis Quiles Final K31.9 Disease of stomach and duodenum, unspecified 05/03/2019 Luis Quiles Final K52.9 Noninfective gastroenteritis and colitis, unspecified 05/03/2019 Luis Quiles Final K64.0 First degree hemorrhoids 05/03/2019 Luis Quiles Final R10.3 2 Left lower quadrant pain 05/03/2019 Luis Quiles Final R11.2 Nausea with vomiting, unspecified 05/20/2019 J02.9 Phar yngitis, acute / sore throat 05/20/2019 Z68.30 BMI 30-30.9 2019 LALITA URBINA Final D69.6 Thrombocytopenia, unspecified 2019 LALITA URBINA Final M79.10 Myalgia, unspecified site 2019 LALITA URBINA Reason For Visit R52 Pain, unspecified Procedures Code Description [place] [address] Hyst eroscopy, surgical; with endometrial JUDIE TOSCANO 07/24/2018 [id number] Esop hagogastroduodenoscopy, flexible, JUDIE Kennedy 05/03/2019 [id number] Rotan noscopy, flexible; with biopsy, JUDIE Archuleta 05/03/2019 Results Test Result Range CBCA - 01/27/15 13:03 WBC Count 7.5 X1000/cmm 4.0-10.5 RBC Count 5.01 [id number]/cmm 4.00-5.40 Hemoglobin 14.2 g/dL 12.0-16.0 Hematocrit 41.8 % 37.0-47.0 MCV 83.4 fL 78-100 MCH 28.3 pg 27.0-31.0 MCHC 34.0 g/dL 32.0-36.0 RDW 14.8 % 11.5-14.0 Platelet Count 77 X1000/cmm 150-450 MPV 10.4 fL 8.0-11.7 Differential Type AUTOMATED NRG Neutrophil % 68.7 % 43.0-65.0 Lymphocyte % 23.3 % 20.5-45.5 Monocyte % 6.8 % 5.5-11.7 Eosinophil % 0.5 % 0.9-2.9 Basophil % 0.4 % 0.2-1.0 Neutrophil Abs Auto 5.1 X1000 1.72-6.83 Lymphocyte Abs Auto 1.7 X1000 0.84-4.83 Monocyte Abs Auto 0.5 X1000 0.24-1.26 Eosinophil Abs Auto 0.0 X1000 0.04-0.32 Basophil Abs Auto 0.0 X1000 0.00-0.11 Immature Granulocyte 0.3 % NRG Immature Grans Absolute 0.0 X1000 0.00-0 .05 CBCA - 08/01/15 15:05 WBC Count 6.6 X1000/cmm 4.0-10.5 RBC Count 4.75 [id number]/cmm 4.00-5.40 Hemoglobin 13.4 g/dL 12.0-16.0 Hematocrit 39.4 % 37.0-47.0 MCV 82.9 fL 78-100 MCH 28.2 pg 27.0-31.0 MCHC 34.0 g/dL 32.0-36.0 RDW 13.9 % 11.5-14.0 Platelet Count 52 X1000/cmm 150-450 MPV 11.0 fL 8.0-11.7 Differential Type AUTOMATED NRG Neutrophil % 58.4 % 43.0-65.0 Lymphocyte % 33.7 % 20.5-45.5 Monocyte % 5.9 % 5.5-11.7 Eosinophil % 1.1 % 0.9-2.9 Basophil % 0.9 % 0.2-1.0 Neutrophil Abs Auto 3.9 X1000 1.72-6.83 Lymphocyte Abs Auto 2.2 X1000 0.84-4.83 Monocyte Abs Auto 0.4 X1000 0.24-1.26 Eosinophil Abs Auto 0.1 X1000 0.04-0.32 Basophil Abs Auto 0.1 X1000 0.00-0.11 Immature Granulocyte 0.0 % NRG Immature Grans Absolute 0.0 X1000 0.00-0 .05 CBCA - 03/29/16 13:05 WBC Count 6.2 X1000/cmm 4.0-10.5 RBC Count 4.63 [id number]/cmm 4.00-5.40 Hemoglobin 13.7 g/dL 12.0-16.0 Hematocrit 39.8 % 37.0-47.0 MCV 86.0 fL 78-100 MCH 29.6 pg 27.0-31.0 MCHC 34.4 g/dL 32.0-36.0 RDW 13.5 % 11.5-14.0 Platelet Count 84 X1000/cmm 150-450 MPV 10.8 fL 8.0-11.7 Differential Type AUTOMATED NRG Neutrophil % 52.9 % 43.0-65.0 Lymphocyte % 37.6 % 20.5-45.5 Monocyte % 6.6 % 5.5-11.7 Eosinophil % 2.1 % 0.9-2.9 Basophil % 0.6 % 0.2-1.0 Neutrophil Abs Auto 3.3 X1000 1.72-6.83 Lymphocyte Abs Auto 2.3 X1000 0.84-4.83 Monocyte Abs Auto 0.4 X1000 0.24-1.26 Eosinophil Abs Auto 0.1 X1000 0.04-0.32 Basophil Abs Auto 0.0 X1000 0.00-0.11 Immature Granulocyte 0.2 % NRG Immature Grans Absolute 0.0 X1000 0.00-0 .05 SED RATE - 05/29/16 13:24 Sed Rate 13 mm/hr 0-20 CBCA - 08/05/16 09:51 WBC Count 7.0 X1000/cmm 4.0-10.5 RBC Count 4.76 [id number]/cmm 4.00-5.40 Hemoglobin 13.8 g/dL 12.0-16.0 Hematocrit 40.7 % 37.0-47.0 MCV 85.5 fL 78-100 MCH 29.0 pg 27.0-31.0 MCHC 33.9 g/dL 32.0-36.0 RDW 14.1 % 11.5-14.0 Platelet Count 37 X1000/cmm 150-450 MPV 11.6 fL 8.0-11.7 Neutrophil % 57.2 % 43.0-65.0 Lymphocyte % 33.2 % 20.5-45.5 Monocyte % 5.9 % 5.5-11.7 Eosinophil % 3.0 % 0.9-2.9 Basophil % 0.4 % 0.2-1.0 Immature Granulocyte 0.3 % NRG Neutrophil Abs Auto 4.0 X1000 1.72-6.83 Lymphocyte Abs Auto 2.3 X1000 0.84-4.83 Monocyte Abs Auto 0.4 X1000 0.24-1.26 Eosinophil Abs Auto 0.2 X1000 0.04-0.32 Basophil Abs Auto 0.0 X1000 0.00-0.11 Immature Grans Absolute 0.0 X1000 0.00-0 .05 Differential Type AUTOMATED NRG CBCA - 09/02/16 13:28 WBC Count 7.3 X1000/cmm 4.0-10.5 RBC Count 4.85 [id number]/cmm 4.00-5.40 Hemoglobin 14.0 g/dL 12.0-16.0 Hematocrit 41.2 % 37.0-47.0 MCV 84.9 fL 78-100 MCH 28.9 pg 27.0-31.0 MCHC 34.0 g/dL 32.0-36.0 RDW 14.1 % 11.5-14.0 Platelet Count 73 X1000/cmm 150-450 MPV 11.2 fL 8.0-11.7 Differential Type AUTOMATED NRG Neutrophil % 49.6 % 43.0-65.0 Lymphocyte % 37.1 % 20.5-45.5 Monocyte % 8.8 % 5.5-11.7 Eosinophil % 3.6 % 0.9-2.9 Basophil % 0.6 % 0.2-1.0 Neutrophil Abs Auto 3.6 X1000 1.72-6.83 Lymphocyte Abs Auto 2.7 X1000 0.84-4.83 Monocyte Abs Auto 0.6 X1000 0.24-1.26 Eosinophil Abs Auto 0.3 X1000 0.04-0.32 Basophil Abs Auto 0.0 X1000 0.00-0.11 Immature Granulocyte 0.3 % NRG Immature Grans Absolute 0.0 X1000 0.00-0 .05 BLOOD BANK HOLD - 09/02/16 13:28 Blood Bank Hold DRAWN NRG Specimen Or Xm Expiration 09/05/2016 NR G CBCA - 10/28/16 14:42 WBC Count 16.4 X1000/cmm 4.0-10.5 RBC Count 4.89 [id number]/cmm 4.00-5.40 Hemoglobin 14.2 g/dL 12.0-16.0 Hematocrit 41.4 % 37.0-47.0 MCV 84.7 fL 78-100 MCH 29.0 pg 27.0-31.0 MCHC 34.3 g/dL 32.0-36.0 RDW 13.6 % 11.5-14.0 Platelet Count 159 X1000/cmm 150-450 MPV 10.8 fL 8.0-11.7 Differential Type AUTOMATED NRG Neutrophil % 75.1 % 43.0-65.0 Lymphocyte % 18.6 % 20.5-45.5 Monocyte % 4.8 % 5.5-11.7 Eosinophil % 0.7 % 0.9-2.9 Basophil % 0.4 % 0.2-1.0 Neutrophil Abs Auto 12.4 X1000 1.72-6.83 Lymphocyte Abs Auto 3.1 X1000 0.84-4.83 Monocyte Abs Auto 0.8 X1000 0.24-1.26 Eosinophil Abs Auto 0.1 X1000 0.04-0.32 Basophil Abs Auto 0.1 X1000 0.00-0.11 Immature Granulocyte 0.4 % NRG Immature Grans Absolute 0.1 X1000 0.00-0 .05 CBCA - 01/28/17 12:33 WBC Count 6.8 X1000/cmm 4.0-10.5 RBC Count 4.97 [id number]/cmm 4.00-5.40 Hemoglobin 14.5 g/dL 12.0-16.0 Hematocrit 42.6 % 37.0-47.0 MCV 85.7 fL 78-100 MCH 29.2 pg 27.0-31.0 MCHC 34.0 g/dL 32.0-36.0 RDW 14.0 % 11.5-14.0 Platelet Count 92 X1000/cmm 150-450 MPV 11.2 fL 8.0-11.7 Differential Type AUTOMATED NRG Neutrophil % 55.2 % 43.0-65.0 Lymphocyte % 35.7 % 20.5-45.5 Monocyte % 5.6 % 5.5-11.7 Eosinophil % 2.8 % 0.9-2.9 Basophil % 0.6 % 0.2-1.0 Neutrophil Abs Auto 3.8 X1000 1.72-6.83 Lymphocyte Abs Auto 2.4 X1000 0.84-4.83 Monocyte Abs Auto 0.4 X1000 0.24-1.26 Eosinophil Abs Auto 0.2 X1000 0.04-0.32 Basophil Abs Auto 0.0 X1000 0.00-0.11 Immature Granulocyte 0.1 % NRG Immature Grans Absolute 0.0 X1000 0.00-0 .05 MICROSCOPIC URINALYSIS ONLY - 02/16/17 0 0:01 MICROSCOPIC EXAM REQUESTED NRG WBC/HPF 5-10 HPF 0-4 /HPF RBC/HPF 0-3 HPF 0-4 /HPF BACTERIA NEGATIVE NR: NEGATIVE MUCUS NEGATIVE NR: NEGATIVE EPI CELLS/LPF 0-2 NR: NONE SEEN AMORPHOUS NEGATIVE NRG Cult Medium Islt - 02/16/17 00:01 CULTURE URINE LAB NRG CBCA - 04/28/17 10:27 WBC Count 6.4 X1000/cmm 4.0-10.5 RBC Count 4.89 [id number]/cmm 4.00-5.40 Hemoglobin 14.3 g/dL 12.0-16.0 Hematocrit 42.2 % 37.0-47.0 MCV 86.3 fL 78-100 MCH 29.2 pg 27.0-31.0 MCHC 33.9 g/dL 32.0-36.0 RDW 14.3 % 11.5-14.0 Platelet Count 164 X1000/cmm 150-450 MPV 10.3 fL 8.0-11.7 Differential Type AUTOMATED NRG Neutrophil % 60.3 % 43.0-65.0 Lymphocyte % 29.7 % 20.5-45.5 Monocyte % 7.7 % 5.5-11.7 Eosinophil % 1.6 % 0.9-2.9 Basophil % 0.5 % 0.2-1.0 Neutrophil Abs Auto 3.8 X1000 1.72-6.83 Lymphocyte Abs Auto 1.9 X1000 0.84-4.83 Monocyte Abs Auto 0.5 X1000 0.24-1.26 Eosinophil Abs Auto 0.1 X1000 0.04-0.32 Basophil Abs Auto 0.0 X1000 0.00-0.11 Immature Granulocyte 0.2 % NRG Immature Grans Absolute 0.0 X1000 0.00-0 .05 CBCA - 08/15/17 15:41 WBC Count 6.5 X1000/cmm 4.0-10.5 RBC Count 4.77 [id number]/cmm 4.00-5.40 Hemoglobin 14.5 g/dL 12.0-16.0 Hematocrit 42.1 % 37.0-47.0 MCV 88.3 fL 78-100 MCH 30.4 pg 27.0-31.0 MCHC 34.4 g/dL 32.0-36.0 RDW 14.4 % 11.5-14.0 Platelet Count 54 X1000/cmm 150-450 MPV 11.5 fL 8.0-11.7 Differential Type AUTOMATED NRG Neutrophil % 60.1 % 43.0-65.0 Lymphocyte % 30.5 % 20.5-45.5 Monocyte % 6.2 % 5.5-11.7 Eosinophil % 2.3 % 0.9-2.9 Basophil % 0.6 % 0.2-1.0 Neutrophil Abs Auto 3.9 X1000 1.72-6.83 Lymphocyte Abs Auto 2.0 X1000 0.84-4.83 Monocyte Abs Auto 0.4 X1000 0.24-1.26 Eosinophil Abs Auto 0.2 X1000 0.04-0.32 Basophil Abs Auto 0.0 X1000 0.00-0.11 Immature Granulocyte 0.3 % NRG Immature Grans Absolute 0.0 X1000 0.00-0 .05 CBCA - 10/02/17 19:25 WBC Count 8.1 X1000/cmm 4.0-10.5 RBC Count 4.50 [id number]/cmm 4.00-5.40 Hemoglobin 14.0 g/dL 12.0-16.0 Hematocrit 39.5 % 37.0-47.0 MCV 87.8 fL 78-100 MCH 31.1 pg 27.0-31.0 MCHC 35.4 g/dL 32.0-36.0 RDW 14.3 % 11.5-14.0 Platelet Count 8 X1000/cmm 150-450 MPV 14.4 fL 8.0-11.7 Neutrophil % 68.9 % 43.0-65.0 Lymphocyte % 20.0 % 20.5-45.5 Monocyte % 7.3 % 5.5-11.7 Eosinophil % 2.8 % 0.9-2.9 Basophil % 0.6 % 0.2-1.0 Immature Granulocyte 0.4 % NRG Neutrophil Abs Auto 5.6 X1000 1.72-6.83 Lymphocyte Abs Auto 1.6 X1000 0.84-4.83 Monocyte Abs Auto 0.6 X1000 0.24-1.26 Eosinophil Abs Auto 0.2 X1000 0.04-0.32 Basophil Abs Auto 0.1 X1000 0.00-0.11 Immature Grans Absolute 0.0 X1000 0.00-0 .05 Differential Type MANUAL NRG Platelet Estimate DECREASED NRG RBC Morphology NORMAL NRG Platelet Morphology NORMAL NRG URINALYSIS, CULTURE IF INDICATED - 10/02 20:30 Color, UA YELLOW YELL Clarity, Urine SLIGHTLY CLOUDY Clear Glucose, Urine NEGATIVE mg/dL NEG Bilirubin, UA NEGATIVE NEG Ketones, UA TRACE mg/dL NEG Specific [place], UA 1.029 1.003-1.0 30 Blood, UA MODERATE NEG pH, UA 6.0 5.0-9.0 Protein, UA 30 mg/dL NEG Urobilinogen, UA 3.0 mg/dL NORM Nitrites, UA NEGATIVE NEG Leukocyte Esterase, UA TRACE NEG WBC's, UA 10 to 25 /hpf OFIVE RBC, UA 5 to 10 /hpf OFIVE Bacteria, UA MODERATE /hpf NEG Squamous Epithelials, UA MANY /hpf NEGFE W Hyaline Casts 2 to 5 /lpf NEG Urine Culture Indicated SENT FOR CULTURE NOCULT Specimen Description VOID URINE [facility] URINE CULTURE - 10/02/17 20:30 Specimen Description URINE [facility] Special Requests NONE Reflexed from [id number] NRG [place] Count 10,000 CFU/ML NRG Culture MIXED ROEL IS NOT REPRESENT ATIVE OF INFECTION. PLEASE REPEAT IF CLINICALLY INDICATED. NRG Report Status FINAL 10/04/2017 NRG Organism MIXFL NRG Culture Status NRG CBCA - 10/03/17 06:37 WBC Count 9.0 X1000/cmm 4.0-10.5 RBC Count 4.61 [id number]/cmm 4.00-5.40 Hemoglobin 13.7 g/dL 12.0-16.0 Hematocrit 40.3 % 37.0-47.0 MCV 87.4 fL 78-100 MCH 29.7 pg 27.0-31.0 MCHC 34.0 g/dL 32.0-36.0 RDW 14.1 % 11.5-14.0 Platelet Count 10 X1000/cmm 150-450 MPV UNABLE TO PERFORM TESTING fL 8 .0-11.7 Neutrophil % 87.9 % 43.0-65.0 Lymphocyte % 10.3 % 20.5-45.5 Monocyte % 1.2 % 5.5-11.7 Eosinophil % 0.1 % 0.9-2.9 Basophil % 0.1 % 0.2-1.0 Immature Granulocyte 0.4 % NRG Neutrophil Abs Auto 7.9 X1000 1.72-6.83 Lymphocyte Abs Auto 0.9 X1000 0.84-4.83 Monocyte Abs Auto 0.1 X1000 0.24-1.26 Eosinophil Abs Auto 0.0 X1000 0.04-0.32 Basophil Abs Auto 0.0 X1000 0.00-0.11 Immature Grans Absolute 0.0 X1000 0.00-0 .05 Differential Type AUTOMATED NRG Platelet Estimate DECREASED NRG RBC Morphology NORMAL NRG Large Platelets OCCASIONAL NRG SED RATE - 10/04/17 05:36 Sed Rate 17 mm/hr 0-20 CBCA - 10/10/17 10:35 WBC Count 13.6 X1000/cmm 4.0-10.5 RBC Count 4.83 [id number]/cmm 4.00-5.40 Hemoglobin 14.7 g/dL 12.0-16.0 Hematocrit 43.7 % 37.0-47.0 MCV 90.5 fL 78-100 MCH 30.4 pg 27.0-31.0 MCHC 33.6 g/dL 32.0-36.0 RDW 15.4 % 11.5-14.0 Platelet Count 186 X1000/cmm 150-450 MPV 10.5 fL 8.0-11.7 Differential Type AUTOMATED NRG Neutrophil % 80.0 % 43.0-65.0 Lymphocyte % 13.4 % 20.5-45.5 Monocyte % 4.6 % 5.5-11.7 Eosinophil % 1.2 % 0.9-2.9 Basophil % 0.1 % 0.2-1.0 Neutrophil Abs Auto 10.9 X1000 1.72-6.83 Lymphocyte Abs Auto 1.8 X1000 0.84-4.83 Monocyte Abs Auto 0.6 X1000 0.24-1.26 Eosinophil Abs Auto 0.2 X1000 0.04-0.32 Basophil Abs Auto 0.0 X1000 0.00-0.11 Immature Granulocyte 0.7 % NRG Immature Grans Absolute 0.1 X1000 0.00-0 .05 HEPATITIS B CORE TOTAL - 11/13/17 14:36 Hepatitis B Core Antibody Total Negative Negative HEPATITIS B SURFACE AG - 11/13/17 14:36 Hepatitis B Surface Ag NEGATIVE NEG CBCA - 11/21/17 08:34 WBC Count 7.9 X1000/cmm 4.0-10.5 RBC Count 4.62 [id number]/cmm 4.00-5.40 Hemoglobin 14.3 g/dL 12.0-16.0 Hematocrit 42.2 % 37.0-47.0 MCV 91.3 fL 78-100 MCH 31.0 pg 27.0-31.0 MCHC 33.9 g/dL 32.0-36.0 RDW 13.8 % 11.5-14.0 Platelet Count 89 X1000/cmm 150-450 MPV 10.5 fL 8.0-11.7 Differential Type AUTOMATED NRG Neutrophil % 66.1 % 43.0-65.0 Lymphocyte % 22.4 % 20.5-45.5 Monocyte % 8.2 % 5.5-11.7 Eosinophil % 2.2 % 0.9-2.9 Basophil % 0.6 % 0.2-1.0 Neutrophil Abs Auto 5.2 X1000 1.72-6.83 Lymphocyte Abs Auto 1.8 X1000 0.84-4.83 Monocyte Abs Auto 0.6 X1000 0.24-1.26 Eosinophil Abs Auto 0.2 X1000 0.04-0.32 Basophil Abs Auto 0.1 X1000 0.00-0.11 Immature Granulocyte 0.5 % NRG Immature Grans Absolute 0.0 X1000 0.00-0 .05 CBCA - 11/26/17 08:20 WBC Count 8.1 X1000/cmm 4.0-10.5 RBC Count 4.68 [id number]/cmm 4.00-5.40 Hemoglobin 14.3 g/dL 12.0-16.0 Hematocrit 42.3 % 37.0-47.0 MCV 90.4 fL 78-100 MCH 30.6 pg 27.0-31.0 MCHC 33.8 g/dL 32.0-36.0 RDW 13.4 % 11.5-14.0 Platelet Count 83 X1000/cmm 150-450 MPV 10.3 fL 8.0-11.7 Differential Type AUTOMATED NRG Neutrophil % 70.4 % 43.0-65.0 Lymphocyte % 20.6 % 20.5-45.5 Monocyte % 6.4 % 5.5-11.7 Eosinophil % 1.5 % 0.9-2.9 Basophil % 0.6 % 0.2-1.0 Neutrophil Abs Auto 5.7 X1000 1.72-6.83 Lymphocyte Abs Auto 1.7 X1000 0.84-4.83 Monocyte Abs Auto 0.5 X1000 0.24-1.26 Eosinophil Abs Auto 0.1 X1000 0.04-0.32 Basophil Abs Auto 0.1 X1000 0.00-0.11 Immature Granulocyte 0.5 % NRG Immature Grans Absolute 0.0 X1000 0.00-0 .05 CBCA - 12/10/17 08:14 WBC Count 7.4 X1000/cmm 4.0-10.5 RBC Count 4.78 [id number]/cmm 4.00-5.40 Hemoglobin 14.3 g/dL 12.0-16.0 Hematocrit 42.8 % 37.0-47.0 MCV 89.5 fL 78-100 MCH 29.9 pg 27.0-31.0 MCHC 33.4 g/dL 32.0-36.0 RDW 13.2 % 11.5-14.0 Platelet Count 77 X1000/cmm 150-450 MPV 10.8 fL 8.0-11.7 Differential Type AUTOMATED NRG Neutrophil % 67.2 % 43.0-65.0 Lymphocyte % 21.9 % 20.5-45.5 Monocyte % 7.9 % 5.5-11.7 Eosinophil % 1.9 % 0.9-2.9 Basophil % 0.8 % 0.2-1.0 Neutrophil Abs Auto 5.0 X1000 1.72-6.83 Lymphocyte Abs Auto 1.6 X1000 0.84-4.83 Monocyte Abs Auto 0.6 X1000 0.24-1.26 Eosinophil Abs Auto 0.1 X1000 0.04-0.32 Basophil Abs Auto 0.1 X1000 0.00-0.11 Immature Granulocyte 0.3 % NRG Immature Grans Absolute 0.0 X1000 0.00-0 .05 CBCA - 12/17/17 08:49 WBC Count 6.9 X1000/cmm 4.0-10.5 RBC Count 4.83 [id number]/cmm 4.00-5.40 Hemoglobin 14.4 g/dL 12.0-16.0 Hematocrit 42.4 % 37.0-47.0 MCV 87.8 fL 78-100 MCH 29.8 pg 27.0-31.0 MCHC 34.0 g/dL 32.0-36.0 RDW 13.2 % 11.5-14.0 Platelet Count 89 X1000/cmm 150-450 MPV 10.5 fL 8.0-11.7 Differential Type AUTOMATED NRG Neutrophil % 65.6 % 43.0-65.0 Lymphocyte % 25.4 % 20.5-45.5 Monocyte % 5.8 % 5.5-11.7 Eosinophil % 2.2 % 0.9-2.9 Basophil % 0.7 % 0.2-1.0 Neutrophil Abs Auto 4.5 X1000 1.72-6.83 Lymphocyte Abs Auto 1.8 X1000 0.84-4.83 Monocyte Abs Auto 0.4 X1000 0.24-1.26 Eosinophil Abs Auto 0.2 X1000 0.04-0.32 Basophil Abs Auto 0.1 X1000 0.00-0.11 Immature Granulocyte 0.3 % NRG Immature Grans Absolute 0.0 X1000 0.00-0 .05 CBCA - 01/21/18 09:06 WBC Count 9.1 X1000/cmm 4.0-10.5 RBC Count 4.71 [id number]/cmm 4.00-5.40 Hemoglobin 14.2 g/dL 12.0-16.0 Hematocrit 41.5 % 37.0-47.0 MCV 88.1 fL 78-100 MCH 30.1 pg 27.0-31.0 MCHC 34.2 g/dL 32.0-36.0 RDW 13.5 % 11.5-14.0 Platelet Count 107 X1000/cmm 150-450 MPV 10.1 fL 8.0-11.7 Differential Type AUTOMATED NRG Neutrophil % 71.1 % 43.0-65.0 Lymphocyte % 21.1 % 20.5-45.5 Monocyte % 5.6 % 5.5-11.7 Eosinophil % 1.5 % 0.9-2.9 Basophil % 0.4 % 0.2-1.0 Neutrophil Abs Auto 6.4 X1000 1.72-6.83 Lymphocyte Abs Auto 1.9 X1000 0.84-4.83 Monocyte Abs Auto 0.5 X1000 0.24-1.26 Eosinophil Abs Auto 0.1 X1000 0.04-0.32 Basophil Abs Auto 0.0 X1000 0.00-0.11 Immature Granulocyte 0.3 % NRG Immature Grans Absolute 0.0 X1000 0.00-0 .05 CBCA - 02/23/18 11:36 WBC Count 7.2 X1000/cmm 4.0-10.5 CBCA - 03/16/18 09:40 WBC Count 7.7 X1000/cmm 4.0-10.5 CBCA - 06/03/18 10:03 Nucleated RBC Absolute 0.0 ZZ NRG Platelet Clumps 0 0-100 HEMOGLOBIN A1C - 06/18/18 15:44 Est. Avg. Glucose 94 ZZ 70-100 TSH, REFLEX TO FREE T4 - 06/18/18 15:44 Thyroid Stimulating Hormone 2.34 ZZ 0. 34-5.60 DHEA SULFATE, SERUM - 06/18/18 15:44 Dheas Sulfate, Serum 176 ZZ 65-380 PROLACTIN - 06/18/18 15:44 Prolactin 10.8 ZZ 2.8-26.0 TESTOSTERONE FREE, FEMALE - 06/18/18 15: 44 Testosterone, Free LC-MS/MS 3.1 ZZ 0. 8-7.4 CBCA - 07/20/18 14:38 MCH 29.1 ZZ 27.0-31.0 Differential? Auto NRG HCG, URINE QUAL - 07/24/18 08:12 Specific [place], Urine 1.021 NRG CBCA - 10/22/18 14:28 WBC 7.8 ZZ 4.0-10.5 CBCA - 11/02/18 13:44 MCV 85.5 ZZ 78.0-100.0 Platelet Clumps 0 0-100 CBCA - 11/09/18 08:43 RDW 13.9 ZZ 11.5-14.0 CBCA - 11/23/18 13:49 MPV 11.7 ZZ 8.0-11.7 AUTO BLOOD COUNT - 05/03/19 14:17 MCH 29.9 pg 27.0-31.0 Platelet Clumps 40 0-100 MCV 86.4 fL 78.0-100.0 Nucleated RBC Absolute 0.0 /uL 0.0-0.0 HCT 40.5 % 37.0-47.0 Hgb 14.0 g/dL 12.0-16.0 MPV 10.6 fL 8.0-11.7 Platelet Count 129 k/uL 150-450 RBC 4.69 M/uL 4.00-5.40 WBC 10.1 k/uL 4.0-10.5 RDW 14.2 % 11.5-14.0 MCHC 34.6 g/dL 32.0-36.0 Complete blood count (CBC) with automate d white blood cell (WBC) differential - 09/15/19 19:11 Blood leukocytes automated count (number/volume) 9.6 10*3/uL 4.3-11.0 Blood erythrocytes automated count (number/volume) 5.18 10*6/uL 4.35-5.85 Venous blood hemoglobin measurement (mass/volume) 15.3 g/dL 11.5-16.0 Blood hematocrit (volume fraction) 46 % 35-52 Automated erythrocyte mean corpuscular volume 88 [ foz_us] 80-99 Automated erythrocyte mean corpuscular h emoglobin (mass per erythrocyte) 30 pg 25-34 Automated erythrocyte mean corpuscular h emoglobin concentration measurement (mass/volume) 34 g/dL 32-36 Automated erythrocyte distribution width ratio 13. 8 % 10.0- 14.5 Automated blood platelet count (count/volume) 105 10*3/uL 130-400 Automated blood platelet mean volume measurement 10.6 [foz_us] 7.4-10.4 Automated blood neutrophils/100 leukocytes 62 % 42-75 Automated blood lymphocytes/100 leukocytes 30 % 12-44 Blood monocytes/100 leukocytes 7 % 0-12 Automated blood eosinophils/100 leukocytes 1 % 0-10 Automated blood basophils/100 leukocytes 1 % 0-10 Blood neutrophils automated count (number/volume) 5.9 10*3 1.8-7.8 Blood lymphocytes automated count (number/volume) 2.9 10*3 1.0-4.0 Blood monocytes automated count (number/volume) 0. 6 10*3 0.0-1.0 Automated eosinophil count 0.1 10*3/uL 0 .0-0.3 Automated blood basophil count (count/volume) 0.1 10*3/uL 0.0-0.1 Comprehensive metabolic panel - 09/15/19 19:11 Serum or plasma sodium measurement (moles/volume) 137 mmol/L 135-145 Serum or plasma potassium measurement (moles/volume) 3.9 mmol/L 3.6-5.0 Serum or plasma chloride measurement (moles/volume) 99 mmol/L 98-107 Carbon dioxide 22 mmol/L 21-32 Serum or plasma anion gap determination (moles/volume) 16 mmol/L 5-14 Serum or plasma urea nitrogen measurement (mass/volume ) 6 mg/dL 7-18 Serum or plasma creatinine measurement (mass/volume) 0.72 mg/dL 0.60-1.30 Serum or plasma urea nitrogen/creatinine mass ratio 8 NRG Serum or plasma creatinine measurement w ith calculation of estimated glomerular filtration rate > NRG Serum or plasma glucose measurement (mass/volume) 95 mg/dL 70-105 Serum or plasma calcium measurement (mass/volume) 9.3 mg/dL 8.5-10.1 Serum or plasma total bilirubin measurement (mass/volu me) 0.5 mg/dL 0.1-1.0 Serum or plasma alkaline phosphatase laurie surement (enzymatic activity/volume) 63 U/L 40-136 Serum or plasma aspartate aminotransfera se measurement (enzymatic activity/volume) 17 U/L 5-34 Serum or plasma alanine aminotransferase measurement (enzymatic activity/volume) 16 U/L 0-55 Serum or plasma protein measurement (mass/volume) 8.3 g/dL 6.4-8.2 Serum or plasma albumin measurement (mass/volume) 4.4 g/dL 3.2-4.5 CALCIUM CORRECTED 9.0 mg/dL 8.5-10.1 Encounters ACCT No. Visit Date/Time Discharge Status Pt. Type Provider Facility Loc./Unit Complaint [id number] 02/16/2017 09:58:00 02/16/2017 23:59: 59 CLS Outpatient HEMA DICK HENRI N39.0 [id number] 05/03/2019 12:47:00 Document Registration [id number] 11/22/2018 00:01:00 Document Registration [id number] 10/22/2018 14:16:00 Document Registration [id number] 07/24/2018 07:46:00 Document Registration [id number] 07/20/2018 14:23:00 Document Registration [id number] 06/18/2018 15:33:00 Document Registration [id number] 06/03/2018 09:58:00 Document Registration [id number] 02/16/2017 09:58:00 Document Registration [id number] 05/03/2019 12:47:00 0 23:59:00 DIS Outpatient [facility] ENC EGD COLON DIAGNOSTIC [id number] 11/22/2018 00:01:00 9 23:59:00 [facility] [id number] 10/05/2018 08:44:00 9 23:59:00 DIS Outpatient Igor Harris [facility] PT PT [id number] 10/22/2018 14:16:00 9 23:59:00 [facility] ONC [id number] 11/09/2018 08:04:00 9 23:59:00 DIS Outpatient [facility] ENC EGD COLON DIAGNOSTIC [id number] 09/24/2018 06:16:00 9 23:59:00 DIS Outpatient Luis Quiles [facility] RAD CT ABD/PELVIS W CONTRAST [id number] 06/26/2018 16:58:00 9 11:36:00 DIS Outpatient CordellQuirinoArleen [facility] LAB PAT TESTING [id number] 07/20/2018 14:23:00 9 08:38:00 [facility] ONC [id number] 07/24/2018 07:46:00 9 23:59:00 [facility] D [id number] 06/24/2018 15:54:00 9 23:59:00 DIS Outpatient [facility] LCLL [id number] 06/18/2018 15:33:00 9 23:59:00 DIS Outpatient [facility] LAB LAB WORK [id number] 06/03/2018 09:58:00 9 16:42:00 [facility] ONC [id number] 04/30/2018 09:14:00 9 23:59:00 [facility] ONC [id number] 03/26/2018 00:01:00 9 09:59:00 [facility] ONC [id number] 02/23/2018 11:33:00 9 23:59:00 [facility] ONC [id number] 01/21/2018 08:58:00 8 09:03:00 [facility] ONC [id number] 12/11/2017 00:01:00 8 23:59:00 [facility] ONC [id number] 11/10/2017 00:01:00 8 23:59:00 [facility] ONC [id number] 10/10/2017 10:24:00 8 23:59:00 [facility] ONC [id number] 10/02/2017 21:27:00 8 09:28:00 DIS Outpatient Harpreet Tubbs I [facility] 2ND THROMBOCYTOPENIA [id number] 08/15/2017 14:26:00 8 14:30:00 [facility] ONC [id number] 04/28/2017 10:05:00 8 14:52:00 [facility] ONC [id number] 01/28/2017 12:18:00 7 12:27:00 [facility] ONC [id number] 10/28/2016 14:37:00 7 23:59:00 DIS Out[facility] [place] ONC ONC [id number] 09/05/2016 00:01:00 7 23:59:00 [facility] ONC [id number] 08/05/2016 09:31:00 7 23:59:00 [facility] ONC [id number] 05/29/2016 13:10:00 7 23:59:00 DIS Outpatient Emilia Espinoza [facility] LAB LAB WORK [id number] 03/29/2016 12:54:00 7 23:59:00 [facility] ONC [id number] 08/01/2015 14:49:00 6 10:14:00 [facility] ONC [id number] 01/27/2015 12:47:00 5 15:13:00 DIS Outpatient David You/mario ONC ONC [id number] 07/29/2014 12:55:00 5 09:30:00 DIS Outpatient David You/person ONC ONC [id number] 07/13/2014 14:29:00 5 23:59:00 DIS Outpatient Emilia Espinoza/mario LAB LAB WORK [id number] 09/15/2019 19:04:00 020 20:22:00 DIS Emergency ROVENSTINE BRITT LEMOS [facility] ER FS ALL OVER BODY PAIN,DIZZY,NAUSEA 2626 11/04/2017 00:00:00 ACT Unknown Annmarie Valdivia [facility] 01/14/2019 11:28:05 ACT Document Registration [id number] 11/27/2018 08:00:00 11/27/2018 23:5 9:59 CLS Outpatient [id number] 03/14/2019 04:38:43 Document Registration [id number] 03/13/2019 04:50:53 Document Registration [id number] 03/13/2019 04:29:02 Document Registration [id number] 11/22/2018 04:50:36 Document Registration [id number] 11/22/2018 04:44:18 Document Registration [id number] 11/21/2018 05:02:34 Document Registration [id number] 11/21/2018 04:29:23 Document Registration [id number] 11/10/2018 16:09:21 Document Registration [id number] 11/10/2018 16:09:17 Document Registration [id number] 11/10/2018 16:09:12 Document Registration [id number] 03/21/2018 04:34:10 Document Registration [id number] 03/04/2018 17:29:37 Document Registration [id number] 03/04/2018 17:29:33 Document Registration [id number] 03/04/2018 17:29:29 Document Registration [id number] 11/11/2017 17:00:09 Document Registration [id number] 05/20/2019 12:16:00 ACT Unknown [id number] 08/26/2016 09:29:50 7 23:59:59 CLS Outpatient EMILIA ESPINOZA [facility] [id number] 05/29/2016 11:28:07 7 23:59:59 CLS Outpatient EMILIA ESPINOZA [facility] [id number] 07/28/2015 09:46:26 6 23:59:59 CLS Outpatient EMILIA ESPINOZA [facility] [id number] 06/04/2016 15:18:50 Document Registration [id number] 02/07/2015 17:34:46 Document Registration [id number] 05/06/2019 11:48:29 0 23:59:59 DIS [facility]patient [facility] [id number] 04/23/2019 16:19:37 0 23:59:59 DIS Outpatient [facility] [id number] 02/16/2019 15:37:25 9 23:59:59 DIS Outpatient [facility] [id number] 01/04/2019 10:07:00 9 23:59:59 DIS Outpatient [facility] [id number] 11/25/2018 09:37:47 9 23:59:59 DIS Outpatient [facility] follow up [id number] 10/08/2018 09:08:27 9 23:59:59 DIS Outpatient [facility] f/u on CT [id number] 09/21/2018 12:27:18 9 23:59:59 DIS Outpatient [facility] LLQ Pain [id number] 08/27/2018 16:00:00 9 23:59:59 DIS Outpatient [facility] [id number] 08/27/2018 13:12:30 9 23:59:59 DIS Outpatient Igor Harris [facility] Chronic LLQ pain [id number] 08/06/2018 10:20:45 9 23:59:59 DIS Outpatient Igor Harris [facility] postop [id number] 06/26/2018 09:44:00 9 23:59:59 DIS Outpatient [facility] [id number] 06/24/2018 08:59:39 9 23:59:59 DIS Outpatient Igor Harris [facility] preop EA [id number] 06/15/2018 00:00:00 9 23:59:59 DIS Outpatient Scanned Documents [id number] 06/12/2018 08:20:20 9 23:59:59 DIS Outpatient Igor Harris [facility] irregular periods [id number] 07/25/2017 10:09:21 8 23:59:59 CLS Outpatient [facility] headaches [id number] 07/07/2017 10:02:00 8 23:59:59 CLS Outpatient [facility] [id number] 03/29/2016 08:47:00 7 23:59:59 [facility] [id number] 2019 12:18:22 0 14:11:00 DIS Emergency LALITA URBINA [facility] DO ED er visit [id number] 03/05/2019 23:33:21 9 01:40:00 DIS Emergency Laura Rhoades [facility] DO ED ED Visit [id number] 01/30/2019 04:52:07 9 08:05:00 DIS Emergency GUILLERMO MEANS [facility] DO ED ed visit [id number] 12/24/2018 11:13:56 9 13:01:00 DIS Emergency Priya Castellanos [facility] DO ED er visit
--- OUTSIDE RECORDS SUMMARY | 2019-09-15 22:07 | XMS REPORT ---
Author Author Carmen Garcia Organization [facility] in[facility] Address [address] [place] [address] Care Team Providers Care Doping Supervisor Name Role Phone Juanita Garcia Unavailable PROBLEMS Type Condition ICD9-CM Code XHS34-DU Code Onset Dates Condition S tatus SNOMED Code Problem Type 2 diabetes mellitus wit hout complication, without long-term current use of insulin E11.9 Active 655504380 Problem Fibromyalgia M79.7 Active 4507801 05 Problem Rheumatoid arthritis involvi ng multiple sites, unspecified rheumatoid factor presence M06.9 Active 987808950 Problem Thrombocytopenia D69.6 Active 415 874893 Problem Mild episode of recurrent major depressive disorder F33.0 Active 434152679 ALLERGIES No Information ENCOUNTERS Encounter Location Date Diagnosis [facility] [address] [facility] [address] [place], [place] [phone] Oct, [facility] [address] [facility] [address] [place], [place] [id number] Sep, [facility] [address] [place] [id number] Sep, [address] 6 [id number] Sep, Thrombocytopenia D69.6 ; Glucosuria R81 and Type 2 diabetes mellitus without complication, without long-term current use of insulin E11.9 [address] [address] [place], [place] [id number] Aug, Sunburn of second degree L55.1 and Cellu litis of right lower extremity L03.[address] 6 [id number] Jun, Well woman exam Z01.419 [facility] [address] [place] [id number] Jun, [facility] [place], [place] [id number] May, [address] 6 [id number] May, Lupus erythematosus, unspecified form L9 3.0 [...]
--- OUTSIDE RECORDS SUMMARY | 2019-09-15 22:07 | XMS REPORT ---
Author Author Carmen Garcia Organization [facility] in[facility] Address [address] [place] [address] Care Team Providers Care Floor Coverings Installer Name Role Phone Juanita Garcia Unavailable PROBLEMS Type Condition ICD9-CM Code DUX59-AM Code Onset Dates Condition S tatus SNOMED Code Problem Type 2 diabetes mellitus wit hout complication, without long-term current use of insulin E11.9 Active 407576198 Problem Fibromyalgia M79.7 Active 4053668 05 Problem Rheumatoid arthritis involvi ng multiple sites, unspecified rheumatoid factor presence M06.9 Active 253244497 Problem Thrombocytopenia D69.6 Active 415 420385 Problem Mild episode of recurrent major depressive disorder F33.0 Active 664362064 ALLERGIES No Information ENCOUNTERS Encounter Location Date Diagnosis [facility] [address] [place], [place] [id number] Sep, [facility] [address] [address] [place], [place] [id number] Sep, [place] [address] [place] [id number] Sep, Thrombocytopenia D69.6 ; Glucosuria R81 and Type 2 diabetes mellitus without complication, without long-term current use of insulin E11.9 [address] [address] [place], [place] [id number] Aug, Sunburn of second degree L55.1 and Cellu litis of right lower extremity L03.[address] [facility] [address] [place], [place] [id number] Jun, Well woman exam Z01.419 [facility] [address] [address] [place], [place] [id number] Jun, [address] [address] [place], [place] [id number] May, [place] [address] [place], [place] [id number] May, Lupus erythematosus, unspecified form L9 3.0 ; Thrombocytopenia D69.6 ; Rheumatoid arthritis involving multiple sites, unspecified rheumatoid factor presence M06.9 ; Acute non-recurrent pansinusitis J01.40 and Mild episode of recurrent major depressive disorder F33.0 IMMUNIZATIONS No Known Immunizations SOCIAL HISTORY Never Assessed REASON FOR VISIT check on patient PLAN OF CARE VITAL SIGNS MEDICATIONS Unknown [...]
--- OUTSIDE RECORDS SUMMARY | 2019-09-15 22:07 | XMS REPORT ---
Author Author Carmen Howe Organization [facility] Address [address] [place] [address] Care Team Providers Care Frame Assembler Name Role Phone Mallika Howe Unavailable PROBLEMS Type Condition ICD9-CM Code FZO34-YI Code Onset Dates Condition S tatus SNOMED Code Problem Thrombocytopenia D69.6 Active 415 074566 Problem Rheumatoid arthritis involvi ng multiple sites, unspecified rheumatoid factor presence M06.9 Active 130139949 Problem Mild episode of recurrent major depressive disorder F33.0 Active 239841323 Problem Fibromyalgia M79.7 Active 7742464 05 ALLERGIES Substance Reaction Event Type Date Status seasonal Unknown Non Drug Allergy May, Active ENCOUNTERS Encounter Location Date Diagnosis [facility] [address] [place], [place] [phone] Jun, [facility] [address] [place], [place] [phone] May, Lupus erythematosus, unspecified form L9 3.0 ; Thrombocytopenia D69.6 ; Rheumatoid arthritis involving multiple sites, unspecified rheumatoid factor presence M06.9 ; Acute non-recurrent pansinusitis J01.40 and Mild episode of recurrent major depressive disorder F33.0 IMMUNIZATIONS No Known Immunizations SOCIAL HISTORY Never Assessed REASON FOR VISIT cold PLAN OF CARE Activity Details Follow Up 6 Weeks Reason:f/u depressio n Pending Test Hemoglobin A1c Pending Test CBC with Differential/Platel et Pending Test Lipid Panel Pending Test CMP (Comprehensive Metabolic Panel) Pending Test TSH Rfx on Abnormal to Free T4 VITAL SIGNS Heart Rate 86 /min 2017-06-05 Respiratory Rate 16 /min 2017-06-05 Temperature 99.3 degrees Fahrenheit 2017-06-05 Oximetry 97 % 2017-06-05 BMI 34.44 kg/m2 2017-06-05 Height 65 in 2017-06-05 Weight 207 lbs 2017-06-05 Blood pressure systolic 110 mm Hg 2017-06-05 Blood pressure diastolic 76 mm Hg 2017-06-05 MEDICATIONS Medication Instructions Dosage Frequency Start Date End Date Duration S tatus Lyrica 225 MG Orally Twice a day 1 capsule 12h Active Azathioprine 50 MG Orally BID 1 tab 12h Ac tive Naprosyn 500 MG Orally Twice a day 1 tablet with food or milk 12h Active Montelukast Sodium 10 MG Orally Once a day 1 tablet in the evening 24h Active Ferrous Sulfate 325 (65 Fe) MG Orally BID 1 tablet 12h Active Tizanidine HCl 4 MG Orally once a day 1 tablet as needed 24h 2 2 May, 2017 May, 90 days Active Duloxetine HCl 60 MG Orally Twice a day 1 capsule 12h May, 30 day(s) Active Fluconazole 150 MG Orally Once a day 1 tablet 24h May, May, 1 days Active Bactrim DS 800-160 MG Orally Twice a day 1 tablet 12h May, 018 1 Jun, 2017 10 day(s) Active Robaxin-750 750 MG Orally BID 1 tablet 12h A ctive RESULTS No Results PROCEDURES Procedure Date Ordered Result Body Site [facility] visit, new patient June 05, 2017 DOC MEDS VERIFIED W/PT OR RE June 05, 2017 INSTRUCTIONS MEDICATIONS ADMINISTERED No Known Medications MEDICAL (GENERAL) HISTORY Type Description Date Medical History fibromyalgia Medical History RA Medical History lupus Medical History depression Medical History immunothrombocytopenia Surgical History tubal ligation Hospitalization History child x 3
--- OUTSIDE RECORDS SUMMARY | 2019-09-15 22:07 | XMS REPORT ---
Author Author Carmen Howe Organization [facility] Address [address] [place] [address] Care Team Providers Care Bombsight Specialist Name Role Phone Mallika Howe Unavailable PROBLEMS Type Condition ICD9-CM Code DGL54-YH Code Onset Dates Condition S tatus SNOMED Code Problem Fibromyalgia M79.7 Active 8547954 05 Problem Thrombocytopenia D69.6 Active 415 094882 Problem Mild episode of recurrent major depressive disorder F33.0 Active 626900316 Problem Rheumatoid arthritis involvi ng multiple sites, unspecified rheumatoid factor presence M06.9 Active 858919553 ALLERGIES No Known Allergies ENCOUNTERS Encounter Location Date Diagnosis [facility] [address] [place], [place] [id number] Jun, Well woman exam Z01.419 [facility] [address] [facility] [address] [place], [place] [phone] Jun, [facility] [address] [facility] [address] [place] [phone] May, [facility] [address] [place], [place] [id number] May, Lupus erythematosus, unspecified form L9 3.0 ; Thrombocytopenia D69.6 ; Rheumatoid arthritis involving multiple sites, unspecified rheumatoid factor presence M06.9 ; Acute non-recurrent pansinusitis J01.40 and Mild episode of recurrent major depressive disorder F33.0 IMMUNIZATIONS No Known Immunizations SOCIAL HISTORY Never Assessed REASON FOR VISIT wwe 1yr ago normal PLAN OF CARE Activity Details Follow Up as scheduled Reason: VITAL SIGNS Heart Rate 76 /min 2017-06-26 Oximetry 98 % 2017-06-26 BMI 33.78 kg/m2 2017-06-26 Height 65 in 2017-06-26 Weight 203 lbs 2017-06-26 Blood pressure systolic 113 mm Hg 2017-06-26 Blood pressure diastolic 83 mm Hg 2017-06-26 MEDICATIONS Medication Instructions Dosage Frequency Start Date End Date Duration S tatus Montelukast Sodium 10 MG Orally Once a day 1 tablet in the evening 24h Active Naprosyn 500 MG Orally Twice a day 1 tablet with food or milk 12h Active Lyrica 225 MG Orally Twice a day 1 capsule 12h Active Ferrous Sulfate 325 (65 Fe) MG Orally BID 1 tablet 12h Active Robaxin-750 750 MG Orally BID 1 tablet 12h A ctive Tizanidine HCl 4 MG Orally once a day 1 tablet as needed 24h 2 2 May, 2017 17 May, 2018 90 days Active Duloxetine HCl 60 MG Orally Twice a day 1 capsule 12h May, 30 day(s) Active Azathioprine 50 MG Orally BID 1 tab 12h Ac tive RESULTS Name Result Date Reference Range Chlamydia/GC Amplification 2017-06-26 Chlamydia trachomatis, JULIO CÉSAR Negative Negat mary Neisseria gonorrhoeae, JULIO CÉSAR Negative Negat mary Pap Lb, rfx HPV ASCU 2017-06-26 DIAGNOSIS: Specimen adequacy: Clinician provided ICD10: Performed by: . . Note: . PROCEDURES Procedure Date Ordered Result Body Site ANNUAL WELLNESS VST; PPS SUBSQT VST June 26, 2017 [facility] visit, established patient June 26, 2017 MEDS DOCUMENT W/O VERIFICA June 26, 2017 INSTRUCTIONS MEDICATIONS ADMINISTERED No Known Medications MEDICAL (GENERAL) HISTORY Type Description Date Medical History fibromyalgia Medical History RA Medical History lupus Medical History depression Medical History immunothrombocytopenia Surgical History tubal ligation Hospitalization History child x 3
--- OUTSIDE RECORDS SUMMARY | 2019-09-15 22:07 | XMS REPORT ---
Author Author Carmen Garcia Organization [facility] in[facility] Address [address] [place] [address] Care Team Providers Care Clutch Specialist Name Role Phone Juanita Garcia Unavailable PROBLEMS Type Condition ICD9-CM Code KXR71-CV Code Onset Dates Condition S tatus SNOMED Code Problem Fibromyalgia M79.7 Active 1979803 05 Problem Thrombocytopenia D69.6 Active 415 115263 Problem Mild episode of recurrent major depressive disorder F33.0 Active 778425374 Problem Rheumatoid arthritis involvi ng multiple sites, unspecified rheumatoid factor presence M06.9 Active 147814837 ALLERGIES No Information ENCOUNTERS Encounter Location Date Diagnosis [facility] [address] [place] [id number] Sep, [address] 6 [id number] Sep, Thrombocytopenia D69.[address] [place], [place] [id number] Aug, Sunburn of second degree L55.1 and Cellu litis of right lower extremity L03.[address] 6 [id number] Jun, Well woman exam Z01.419 [facility] [address] [place] [id number] Jun, [address] [place] [id number] May, [address] 6 [id number] May, Lupus erythematosus, unspecified form L9 3.0 ; Thrombocytopenia D69.6 ; Rheumatoid arthritis involving multiple sites, unspecified rheumatoid factor presence M06.9 ; Acute non-recurrent pansinusitis J01.40 and Mild episode of recurrent major depressive disorder F33.0 IMMUNIZATIONS No Known Immunizations SOCIAL HISTORY Never Assessed REASON FOR VISIT Critical lab value PLAN OF CARE VITAL SIGNS MEDICATIONS Unknown [...]
--- OUTSIDE RECORDS SUMMARY | 2019-09-15 22:07 | XMS REPORT ---
Author Author Carmen Garcia Organization [facility] inic Address [address] [place] [address] Care Team Providers Care Spear Fisher Name Role Phone Juanita Garcia Unavailable PROBLEMS Type Condition ICD9-CM Code [id number] Code Onset Dates Condition S tatus SNOMED Code Problem Type 2 diabetes mellitus wit hout complication, without long-term current use of insulin E11.9 Active 849288557 Problem Fibromyalgia M79.7 Active 1238185 05 Problem Rheumatoid arthritis involvi ng multiple sites, unspecified rheumatoid factor presence M06.9 Active 097538147 Problem Thrombocytopenia D69.6 Active [id number] Problem Mild episode of recurrent major depressive disorder F33.0 Active [id number] ALLERGIES No Known Allergies ENCOUNTERS Encounter Location Date Diagnosis [facility] [address] [place], [place] [id number] Sep, [facility] [address] [address] [place], [place] [id number] Sep, [place] [address] [place], [place] [id number] Sep, Thrombocytopenia D69.6 ; Glucosuria R81 and Type 2 diabetes mellitus without complication, without long-term current use of insulin E11.9 [place] [address] [place], [place] [id number] Aug, Sunburn of second degree L55.1 and Cellu litis of right lower extremity L03.115 [facility] [address], [place] [phone] Jun, Well woman exam Z01.419 [facility] [address] [address] [place], [place] [id number] Jun, [place] [address] [place], [place] [id number] May, [place] [address], [place] [phone] May, Lupus erythematosus, unspecified form L9 3.0 ; Thrombocytopenia D69.6 ; Rheumatoid arthritis involving multiple sites, unspecified rheumatoid factor presence M06.9 ; Acute non-recurrent pansinusitis J01.40 and Mild episode of recurrent major depressive disorder F33.0 IMMUNIZATIONS No Known Immunizations SOCIAL HISTORY Never Assessed REASON FOR VISIT platelets PLAN OF CARE Activity Details Follow Up 3 Months, prn Reason: VITAL SIGNS Heart Rate 84 /min 2017-09-30 Respiratory Rate 16 /min 2017-09-30 Temperature 98.6 degrees Fahrenheit 2017-09-30 Oximetry 99 % 2017-09-30 BMI 33.78 kg/m2 2017-09-30 Height 65 in 2017-09-30 Weight 203 lbs 2017-09-30 Blood pressure systolic 115 mm Hg 2017-09-30 Blood pressure diastolic 70 mm Hg 2017-09-30 MEDICATIONS Medication Instructions Dosage Frequency Start Date End Date Duration S tatus Ferrous Sulfate 325 (65 Fe) MG Orally BID 1 tablet 12h Active Lyrica 225 MG Orally Twice a day 1 capsule 12h Active Naprosyn 500 MG Orally Twice a day 1 tablet with food or milk 12h Active Azathioprine 50 MG Orally BID 1 tab 12h Ac tive Tizanidine HCl 4 MG Orally once a day 1 tablet as needed 24h 2 2 May, 2017 17 May, 2018 90 days Active Duloxetine HCl 60 MG Orally Twice a day 1 capsule 12h May, 30 day(s) Active Montelukast Sodium 10 MG Orally Once a day 1 tablet in the evening 24h Active Robaxin-750 750 MG Orally BID 1 tablet 12h A ctive RESULTS Name Result Date Reference Range Glucose, Serum 2017-09-30 Glucose, Serum 112 HgbA1c 2017-09-30 Hemoglobin A1c 5.7 CBC with Differential/Platelet 2017-09-30 WBC 7.1 3.4-10.8 RBC 4.68 3.77-5.28 Hemoglobin 14.0 11.1-15.9 Hematocrit 42.4 34.0-46.6 MCV 91 79-97 MCH 29.9 26.6-33.0 MCHC 33.0 31.5-35.7 RDW 14.8 12.3-15.4 Platelets 13 150-379 Neutrophils 66 Not Estab. Lymphs 21 Not Estab. Monocytes 11 Not Estab. Eos 2 Not Estab. Basos 0 Not Estab. Neutrophils (Absolute) 4.7 1.4-7.0 Lymphs (Absolute) 1.5 0.7-3.1 Monocytes(Absolute) 0.8 0.1-0.9 Eos (Absolute) 0.2 0.0-0.4 Baso (Absolute) 0.0 0.0-0.2 Immature Granulocytes 0 Not Estab. Immature Grans (Abs) 0.0 0.0-0.1 Hematology Comments: Note: PROCEDURES Procedure Date Ordered Result Body Site GLYCOSYLATED HEMOGLOBIN TEST HEMOGLOBIN; GLYCOSYLATED (A1C) September 30, 2017 ASSAY GLUCOSE BLOOD QUANT GLUCOSE; QUANTITATIVE, BLOOD (EXCEPT REAGENT STRIP) September 30, 2017 VENIPUNCT, ROUTINE September 30, 2017 INSTRUCTIONS MEDICATIONS ADMINISTERED No Known Medications [...]
== END 2019-09-15 20:22 | disposition home or self-care (01) ==
LOC: ER FS 19:04
DX: M79.10 Myalgia, unspecified site (principal); M32.9 Systemic lupus erythematosus, unspecified; D69.3 Immune thrombocytopenic purpura; F41.9 Anxiety disorder, unspecified; G89.29 Other chronic pain; F17.210 Nicotine dependence, cigarettes, uncomplicated; Z79.899 Other long term (current) drug therapy
CPT/HCPCS: 36415; 80053; 85025